=== PATIENT | female | born 1950 | race Caucasian/White ===

== ENCOUNTER → 2024-06-07 | Outpatient (CLI) | payer MEDICARE, OTHER ==
--- NOTE | 2024-06-07 14:44 | MR ---
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 COMPARISON: None TECHNIQUE: Triplane multisequence imaging was performed of the pelvis. IV Contrast: 6 cc Gadavist FINDINGS: Reproductive: Vagina: Unremarkable. Uterus: Surgically absent Ovaries: Follicular changes are noted to the ovaries. Right adnexal 7.0 x 5.7 x 1 cm high T2 low T1 s ignal cysts. Bladder: Suprapubic Friend catheter in appropriate position.. Bowel: Unremarkable as visualized. Scattered colonic diverticula. Peritoneum: No free fluid or adenopathy. Lymph nodes: No evidence of adenopathy. Vasculature: Unremarkable. Musculoskeletal: Abnormal bone marrow signal within the left ischial tuberosity with enhancement arou nd this region. Soft tissue defect extending to the the ischial tuberosity measuring at least 3.4 x 3 .8 cm. Right hip arthroplasty limits evaluation the right pelvis. Abdominal wall/soft tissues: Soft tissue defect as described above. IMPRESSION: 1. Left sacral decubitus ulcer with left ischial tuberosity with abnormal bone marrow compatible wit h osteomyelitis. 2. Simple appearing right adnexal cystic lesion measuring up to 7.0 cm. Possibly postsurgical cyst v ersus ovarian cyst. Consider surveillance imaging 1 year. 3. Clonic diverticulosis. 4. Friend catheter in appropriate position.
== END | disposition home or self-care (01) ==
LOC: RADMRIMAIN 08:36
PROVIDERS: ATTEND Internal Medicine Infectious Disease
DX: L89.224 Pressure ulcer of left hip, stage 4 (principal); K57.90 Diverticulosis of intestine, part unspecified, without perforation or abscess without bleeding
CPT/HCPCS: 72197; A9585

== ENCOUNTER → 2025-03-08 | Outpatient (CLI) | payer MEDICARE, OTHER ==
--- NOTE | 2025-03-08 19:02 | MR ---
EXAMINATION TYPE: MR pelvis wo/w con DATE OF EXAM: 03/08/2025 4:57 PM COMPARISON: 06/07/2024. CLINICAL INDICATION: Female, 74 years old with history of L89.224, Assess osteomyelitis of left ischi al tuberosity, pressure ulcer left hip stage 4. TECHNIQUE: Triplane multisequence imaging was performed of the pelvis. IV Contrast: 7 mL Gadobutrol FINDINGS: Reproductive: The uterus is surgically absent. Right probable ovarian 6.9 x 6.1 cm simple appearing cyst. Bladder: Suprapubic celis catheter in place. Bowel: Unremarkable as visualized. Few scattered colonic diverticula. Peritoneum: No free fluid or adenopathy. Lymph nodes: No evidence of adenopathy. Vasculature: Unremarkable. Musculoskeletal: Redemonstration of sacral decubitus ulcer extending to the left ischial tuberosity. No significantly changed from prior. There remains some probable reactive bony edema. Abnormal low si gnal within the T1 weighted imaging in the left initial tuberosity. Soft tissue defect extending to t he the ischial tuberosity measuring at least 3.4 x 3.8 cm. Soft tissue findings are not significantly changed from prior. No organizing fluid collection identified. Right hip arthroplasty limits evaluation the right pelvis. Abdominal wall/soft tissues: Left lower quadrant ostomy partially visualized. IMPRESSION: 1. No demonstration of abnormal signal within the left initial tuberosity suggestive osteoarthritis. Soft tissues are not significantly changed however compared to prior. 2. Suprapubic bladder catheter in appropriate position. 3. Redemonstration of simple appearing right adnexal cyst measuring up to 6.9 cm previously 6.1 cm. C onsider surveillance with follow-up ultrasound in 1 year. 4. Colonic diverticulosis. [facility], , 03/08/2025 7:00 PM
== END | disposition home or self-care (01) ==
LOC: RADMRIMAIN 15:31
PROVIDERS: ATTEND Internal Medicine Infectious Disease
DX: L89.224 Pressure ulcer of left hip, stage 4 (principal); K57.30 Diverticulosis of large intestine without perforation or abscess without bleeding; E27.9 Disorder of adrenal gland, unspecified
CPT/HCPCS: 72197; A9585

== ENCOUNTER 2025-03-13 16:18 | Inpatient (IN) | payer MEDICARE, OTHER ==
--- NOTE | 2025-03-13 16:44 | ED ---
General Adult HPI - General Chief complaint: Extremity Injury, Lower Stated complaint: Fall Time Seen by Provider: 03/13/25 16:25 Source: patient, EMS, RN notes reviewed, old records reviewed Mode of arrival: EMS Limitations: no limitations - History of Present Illness Initial comments: This is a 74 a-year-old female who presents to the emergency department from [facility]. According to the patient she slid out of her wheelchair today and landed on her right side and she went to [facility] where they determined she had a distal femur fracture and a proximal tib-fib fracture. Patient states she does not ambulate anymore because of her multiple sclerosis. Patient states she also has a wound that has been healing over well and she supposed to get a flap for the wound but because of this she now will be delayed. Patient denies hitting her head or neck. Patient has any chest or back pain. - Related Data Home Medications Medication Instructions Recorded Confirmed Acetaminophen [Tylenol] 650 mg PO Q4H PRN 03/13/25 03/13/25 Active Liquid Protein 30 ml PO BID@08,199903/13/25 03/13/25 Ascorbic Acid [Vitamin C] 500 mg PO BID@08,199903/13/25 03/13/25 Aspirin EC [Ecotrin Low Dose] 81 mg PO DAILY@0803/13/25 03/13/25 Baclofen 10 mg PO BID PRN 03/13/25 03/13/25 Baclofen 10 mg PO DAILY@0803/13/25 03/13/25 Baclofen [Lioresal] 20 mg PO HS@199903/13/25 03/13/25 Cetirizine HCl [Zyrtec] 10 mg PO HS@199903/13/25 03/13/25 Dextromethorphan Hbr Syrup 10 ml PO Q4H PRN 03/13/25 03/13/25 Ergocalciferol (Vitamin D2) 1,250 mcg PO TH@79903/13/25 03/13/25 [Drisdol (GEQ) 1,250 MCG (50,000 IU)] Fluticasone Nasal [place] [Flonase 2 spray EA NOSTRIL DAILY@0803/13/25 03/13/25 Nasal [place]] HYDROcodone/APAP 10-325MG [[place] 1 tab PO HS@199903/13/25 03/13/25 10-325] HYDROcodone/APAP 10-325MG [[place] 1 tab PO Q12H PRN 03/13/25 03/13/25 10-325] Hyoscyamine Sulfate [Levsin] 0.125 mg PO Q4H PRN 03/13/25 03/13/25 Ibuprofen [Motrin] 800 mg PO Q6H PRN 03/13/25 03/13/25 Levothyroxine Sodium [Synthroid] 100 mcg PO DAILY@49903/13/25 03/13/25 Lidocaine 4% Patch 1 patch TOPICAL DAILY PRN 03/13/25 03/13/25 Loperamide [Imodium] 2 mg PO Q6H PRN 03/13/25 03/13/25 Meclizine [Antivert] 25 mg PO Q8H PRN 03/13/25 03/13/25 Menthol [Essie] 7.5 mg MM Q3H PRN 03/13/25 03/13/25 Methenamine Hippurate 1 gm PO BID@799,199903/13/25 03/13/25 Methylprednisolone Powder 1,000 mg IV DAILY PRN 03/13/25 03/13/25 Muscle Rub External Cream 10-15% 1 applic TOPICAL Q8H PRN 03/13/25 03/13/25 Ondansetron [Zofran] 4 mg PO Q6H PRN 03/13/25 03/13/25 Simvastatin [Zocor] 5 mg PO HS@199903/13/25 03/13/25 Sodium Chloride [Saline Nasal Mist] 2 spray EA NOSTRIL Q1H PRN 03/13/25 03/13/25 Teriflunomide [Aubagio] 14 mg PO DAILY@79903/13/25 03/13/25 amLODIPine [Norvasc] 5 mg PO DAILY@79903/13/25 03/13/25 diphenhydrAMINE HCL [Benadryl] 25 mg PO HS PRN 03/13/25 03/13/25 guaiFENesin 400 mg PO Q4H PRN 03/13/25 03/13/25 lisinopriL [Zestril] 40 mg PO DAILY@79903/13/25 03/13/25 polyethylene glycoL 3350 [Miralax] 17 gm PO DAILY PRN 03/13/25 03/13/25 Allergies Allergy/AdvReac Type Severity Reaction Status Date / Time cefdinir [From Omnicef] Allergy Nausea & Verified 03/13/25 17:48 Vomiting duloxetine [From Cymbalta] Allergy Unknown Verified 03/13/25 17:48 hydromorphone [From Dilaudid] Allergy Nausea & Verified 03/13/25 17:48 Vomiting Review of Systems ROS Statement: Those systems with pertinent positive or pertinent negative responses have been documented in the HPI. ROS Other: All systems not noted in ROS Statement are negative. Past Medical History Past Medical History: Hypertension, Musculoskeletal Disorder, Thyroid Disorder History of Any Multi-Drug Resistant Organisms: MRSA Date of last positivie culture/infection: 07/05/24 MDRO Source:: BUTTOCK Past Surgical History: Cholecystectomy, Hysterectomy, Orthopedic Surgery Additional Past Surgical History / Comment(s): indwelling suprapubic cath Past Psychological History: No Psychological Hx Reported Smoking Status: Never smoker Past Alcohol Use History: None Reported Past Drug Use History: None Reported General Exam - General Exam Comments Initial Comments: GENERAL: Patient is well-developed and well-nourished. Patient is nontoxic and well- hydrated and is in mild distress. ENT: Neck is soft and supple. No significant lymphadenopathy is noted. Oropharynx is clear. Moist mucous membranes. Neck has full range of motion without eliciting any pain. EYES: The sclera were anicteric and conjunctiva were pink and moist. Extraocular movements were intact and pupils were equal round and reactive to light. Eyelids were unremarkable. PULMONARY: Unlabored respirations. Good breath sounds bilaterally. No audible rales rhonchi or wheezing was noted. CARDIOVASCULAR: There is a regular rate and rhythm without any murmurs gallops or rubs. ABDOMEN: Soft and nontender with normal bowel sounds. SKIN: Skin is clear with no lesions or rashes and otherwise unremarkable. NEUROLOGIC: Patient is alert and oriented x3. Cranial nerves II through XII are grossly intact. Motor and sensory are also intact. Normal speech, volume and content. Symmetrical smile. MUSCULOSKELETAL: Patient has tenderness in the proximal tib-fib area as well as the distal femur area. LYMPHATICS: No significant lymphadenopathy is noted PSYCHIATRIC: Normal psychiatric evaluation. Limitations: no limitations Course Vital Signs 03/13/25 03/13/25 03/13/25 16:22 17:48 18:45 Temperature 98.4 F 98.4 F Pulse Rate 117 H 102 H 112 H Respiratory 20 20 20 Rate Blood Pressure 121/67 116/89 126/61 O2 Sat by Pulse 95 96 94 L Oximetry Medical Decision Making - Medical Decision Making Was pt. sent in by a medical professional or institution (, [facility], [employer], urgent care, hospital, or [facility]...) When possible be specific @ -No Did you speak to anyone other than the patient for history (EMS, parent, family, police, friend...)? What history was obtained from this source @ -No Did you review nursing and triage notes (agree or disagree)? Why? @ -I reviewed and agree with nursing and triage notes Were old charts reviewed (outside hosp., previous admission, EMS record, old EKG, old radiological studies, urgent care reports/EKG's, [facility] records)? Report findings @ -No old charts were reviewed Differential Diagnosis? @ -Differential Musculoskeletal Muscular strain, contusion, ligament sprain, fracture, arthritis, septic arthritis, bursitis, cellulitis, muscle spasm, nerve compression, DVT, arterial occlusion, herpes zoster, electrolyte abnormality, tumor.... This is not meant to be in all inclusive list EKG interpreted by me (3pts min.). @ -As above X-rays interpreted by me (1pt min.). @ -None done CT interpreted by me (1pt min.). @ -None done U/S interpreted by me (1pt. min.). @ -None done What testing was considered but not performed or refused? (CT, X-rays, U/S, labs)? Why? @ -None What meds were considered but not given or refused? Why? @ -None Did you discuss the management of the patient with other professionals (professionals i.e. , [facility], [employer], lab, RT, psych nurse, licensed master social worker, support group manager, teacher, finance officer, case management assistant)? Give summary @ -I spoke with Dr. Wing and he agreed to admit the patient Was smoking cessation discussed for >3mins.? @ -No Was critical care preformed (if so, how long)? @ -No Were there social determinants of health that impacted care today? How? (Homelessness, low income, unemployed, alcoholism, drug addiction, transportation, low edu. Level, literacy, decrease access to med. care, penitentiary, rehab)? @ -No Was there de-escalation of care discussed even if they declined (Discuss DNR or withdrawal of care, Hospice)? DNR status @ -No What co-morbidities impacted this encounter? (DM, HTN, Smoking, COPD, CAD, Cancer, CVA, ARF, Chemo, Hep., AIDS, mental health diagnosis, sleep apnea, morbid obesity)? @ -None Was patient admitted / discharged? Hospital course, mention meds given and route, prescriptions, significant lab abnormalities, going to OR and other pertinent info. @ -I reviewed patient's x-rays from the sending hospital. They showed a distal comminuted femur fracture as well as a proximal tib-fib fracture. I spoke with Dr. Sana Hood wanted to have the patient admitted to him with a medicine consult and he will speak with the patient in the Undiagnosed new problem with uncertain prognosis? @ -No Drug Therapy requiring intensive monitoring for toxicity (Heparin, Nitro, Insulin, Cardizem)? @ -No Were any procedures done? @ -No Diagnosis/symptom? @ -Femur fracture Acute, or Chronic, or Acute on Chronic? @ -Acute Uncomplicated (without systemic symptoms) or Complicated (systemic symptoms)? @ -Located Side effects of treatment? @ -No Exacerbation, Progression, or Severe Exacerbation? @ -No Poses a threat to life or bodily function? How? (Chest pain, [place], [place], pneumonia, PE, COPD, DKA, ARF, appy, cholecystitis, CVA, Diverticulitis, Homicidal, Suicidal, threat to staff... and all critical care pts) @ -No Diagnosis/symptom? @ -Proximal tib-fib fracture Acute, or Chronic, or Acute on Chronic? @ -Acute Uncomplicated (without systemic symptoms) or Complicated (systemic symptoms)? @ -Complicated Side effects of treatment? @ -None Exacerbation, Progression, or Severe Exacerbation] @ -No Poses a threat to life or bodily function? @ -No Disposition Clinical Impression: Femoral distal fracture, Fracture of proximal end of tibia and fibula Disposition: ADMITTED IP TO THIS HOSP Referrals: Ishmael Ragsdale MD [Primary Care Provider] - 1-2 days Time of Disposition: 19:34
--- NOTE | 2025-03-13 18:46 | CT ---
EXAMINATION TYPE: CT knee RT wo con DATE OF EXAM: 03/13/2025 6:26 PM COMPARISON: None. CLINICAL INDICATION: Female, 74 years old with history of trauma, pt slid out of her wheelchiar last night, pt was dx with distal femoral fx on the R and proximal tib/fib fx TECHNIQUE: Contrast used: mL of , (none if empty) Oral contrast used: (none if empty) Axial images at 3 mm thick sections. Reconstructed images in the coronal and sagittal planes. FINDINGS: There is a comminuted fracture of the distal diaphyseal femur. There is anterior angulation of approx imately 30 degrees of the distal fracture fragments. There is an additional fracture at the metaphysi s just above the femoral condyles. There is a fracture of the proximal metaphyseal tibia. Some comminution with fracture fragments is in the posterior medial aspect of the tibia There is a transverse fracture of the proximal fibular metaphysis. There is a fluid fluid level within the knee joint space. Vascular calcification is present through t he arterial structures. IMPRESSION: 1. COMMINUTED FRACTURES DISTAL FEMUR INCLUDING THE DISTAL DIAPHYSIS ANGULATED FRACTURE AND FROM A MORE DISTAL TRANSVERSE APPEARING FRACTURE AT THE METAPHYSIS OF THE FEMORAL CONDYLES. 2. FRACTURE OF THE PROXIMAL METAPHYSEAL TIBIA. 3. TRANSVERSE FRACTURE PROXIMAL FIBULAR METAPHYSIS. 4. FLUID FLUID LEVEL WITHIN THE KNEE JOINT SPACE [facility], Workstation: [facility], 03/13/2025 6:44 PM
[2025-03-13] MEDS: MORPHINE SULFATE 2 MG/ML SYRINGE IVP STA (19:36)
[2025-03-13] MEDS: SODIUM CHLORIDE 0.9% 1,000 ML IV ONE (19:40)
[2025-03-13] MEDS ORDERED: HYDROmorphone 1 MG/ML 1 ML SYRINGE IM PRN (21:06)
[2025-03-13 21:44] LABS: Basophils # (A) 0.05 10*3/uL (0.00-0.10); Basophils % (A) 0.4 %; Eosinophils # (A) 0.02 10*3/uL (0.04-0.35); Eosinophils % (A) 0.2 %; HCT 21.9 % (37.2-46.3); Lymphocytes # (A) 1.85 10*3/uL (0.90-5.00); MCH 27.8 pg (27.0-32.0); MCHC 31.5 g/dL (32.0-37.0); MCV 88.3 fL (80.0-97.0); Mean Platelet Volume 10.5 fL (9.5-12.2); Monocytes # (A) 1.63 10*3/uL (0.20-1.00); Monocytes % (A) 13.2 %; Neutrophils # (A) 8.73 10*3/uL (1.80-7.70); Neutrophils % (A) 70.8 %; Platelet Count 312 10*3/uL (140-440); RBC 2.48 10*6/uL (4.10-5.20); RDW 18.2 % (11.5-14.5); WBC 12.33 10*3/uL (4.50-10.00)
[2025-03-13 21:49] LABS: HGB 6.9 g/dL (12.0-15.0)
[2025-03-13 21:55] LABS: African American GFR (CKD) 77 (>60 ml/min/1.73 sqM); Anion Gap 6 mmol/L; Blood Urea Nitrogen 29 mg/dL (7-17); Calcium 8.3 mg/dL (8.4-10.2); Carbon Dioxide 26 mmol/L (22-30); Chloride 104 mmol/L (98-107); Glucose 127 mg/dL (74-99); Magnesium 1.8 mg/dL (1.6-2.3); Non-African American GFR(CKD) 67 (>60 ml/min/1.73 sqM); Potassium 3.3 mmol/L (3.5-5.1); Sodium 136 mmol/L (137-145)
[2025-03-13 22:10] LABS: Large Platelets Present; Polychromasia Present
[2025-03-13] MEDS: METOPROLOL TARTRATE 12.5 MG TAB PO SCH (22:16)
[2025-03-13 23:39] LABS: T4, Free (Free Thyroxine) 1.63 ng/dL (0.78-2.19)
[2025-03-14] MEDS: MORPHINE SULFATE 2 MG/ML SYRINGE IVP PRN (00:01)
[2025-03-14] MEDS: HYDROcodone/APAP 5-325MG 1 EACH TAB PO PRN (02:21)
[2025-03-14] MEDS: LEVOTHYROXINE 100 MCG TAB PO SCH (06:47)
[2025-03-14] MEDS: PANTOPRAZOLE 40 MG TABLET PO SCH (06:47)
--- NOTE | 2025-03-14 08:04 | XR ---
EXAMINATION TYPE: XR chest 1V portable DATE OF EXAM: 03/14/2025 7:58 AM COMPARISON: None TECHNIQUE: XR chest 1V portable Portable AP radiograph of the chest. CLINICAL INDICATION:Female, 74 years old with history of preop; preop for hip surgery today FINDINGS: Lungs/Pleura: There is no evidence of pleural effusion, focal consolidation, or pneumothorax. Pulmonary vascularity: Unremarkable. Heart/mediastinum: Cardiomediastinal silhouette is prominent in size. Atherosclerotic calcifications are seen in the aorta. Musculoskeletal: No acute osseous pathology. Other findings: None Lines/Tubes: Left chest subclavian approach Mediport catheter distal tip at the low SVC. IMPRESSION: No acute cardiopulmonary disease/process. [facility], , 03/14/2025 8:01 AM
[2025-03-14] MEDS: FLUTICASONE NASAL 50MCG/SPRAY 16GM BTL EA NOSTRIL SCH (09:20)
--- NOTE | 2025-03-14 10:17 | CA ---
Transthoracic Echo Report Name: Janee Banuelos Age: 74 Gender: F : 1950 Exam Date: 03/14/2025 08:53 Exam Location: [place] [facility] Ht (in): 63 Wt (lb): 150 Ordering Physician: Meg Thomas Attending/Referring Phys: William WYLIE Director [employer] Trent Sanders, KIRSTEN Procedure CPT: Indications: afib Cardiac Hx: HTN Technical Quality: Fair Contrast 1: Total Dose (mL): Contrast 2: Total Dose (mL): MEASUREMENTS (Male / Female) Normal Values 2D ECHO LV Diastolic Diameter PLAX 3.5 cm 4.2 - 5.9 / 3.9 - 5.3 cm LV Systolic Diameter PLAX 1.9 cm IVS Diastolic Thickness 1.1 cm 0.6 - 1.0 / 0.6 - 0.9 cm LVPW Diastolic Thickness 1.1 cm 0.6 - 1.0 / 0.6 - 0.9 cm LV Relative Wall Thickness 0.6 RV Internal Dim ED PLAX 2.8 cm LVOT Diameter 1.5 cm LA Systolic Diameter LX 3.8 cm 3.0 - 4.0 / 2.7 - 3.8 cm LA Volume 38.3 cm??? 18 - 58 / 22 - 52 cm??? LA Volume Index 21.8 cm???/m??? 16 - 28 cm???/m??? DOPPLER AI Peak Velocity 344.5 cm/s AI Peak Gradient 47.5 mmHg AI Pressure Half Time 360.2 ms MV Peak Velocity 115.8 cm/s MV Peak Gradient 5.4 mmHg MV Mean Velocity 69.5 cm/s MV Mean Gradient 2.2 mmHg MV Velocity Time Integral 20.2 cm MV Area PHT 5.4 cm??? Mitral E Point Velocity 43.8 cm/s Mitral A Point Velocity 89.1 cm/s Mitral E to A Ratio 0.5 MV Deceleration Time 140.5 ms TR Peak Velocity 300.0 cm/s TR Peak Gradient 36.0 mmHg Right Atrial Pressure 5.0 mmHg Pulmonary Artery Systolic Pressu 41.0 mmHg Right Ventricular Systolic Press 41.0 mmHg FINDINGS Left Ventricle Left ventricular ejection fraction is estimated at 65 %. Mildly increased septal wall thickness. Mildly increased posterior wall thickness. Normal left ventricular systolic function with no obvious regional wall motion abnormalities. Right Ventricle Normal right ventricular size and function. Mild pulmonary hypertension. Right ventricular systolic pressure estimated at 41 mm hg. Right Atrium Normal right atrial size. Left Atrium Normal left atrial size. Mitral Valve Mitral annular calcification. No mitral regurgitation. No mitral stenosis. Aortic Valve Trileaflet aortic valve. Thickened aortic valve without stenosis. No aortic stenosis. Moderate aortic regurgitation. Tricuspid Valve Structurally normal tricuspid valve. No tricuspid stenosis. Mild tricuspid regurgitation. Pulmonic Valve Structurally normal pulmonic valve. No pulmonic stenosis. Trace pulmonic regurgitation. Pericardium No pericardial effusion. Aorta Normal size aortic root and proximal ascending aorta. CONCLUSIONS Normal LV size and systolic function. Mild mitral annular calcification and aortic valve sclerosis without restriction. Moderate aortic regurgitation and mild pulmonary hypertension. No pericardial effusion Previewed by: Dr. Kristofer Alicea MD (Electronically Signed) Final Date: 14 Mar 2025 10:16
[2025-03-14 10:38] LABS: Basophils # (A) 0.07 X 10*3/uL (0.00-0.10); Basophils % (A) 0.7 %; HCT 31.3 % (37.2-46.3); HGB 9.9 g/dL (12.0-15.0); Lymphocytes # (A) 1.88 X 10*3/uL (0.90-5.00); Lymphocytes % (A) 18.6 %; MCHC 31.6 g/dL (32.0-37.0); MCV 88.7 FL (80.0-97.0); Mean Platelet Volume 11.2 FL (9.5-12.2); Monocytes # (A) 1.35 X 10*3/uL (0.20-1.00); Monocytes % (A) 13.4 %; NRBC Per 100 WBC 0 X 10*3/uL (0.00-0.01); Neutrophils # (A) 6.65 X 10*3/uL (1.80-7.70); Neutrophils % (A) 65.9 %; Platelet Count 234 X 10*3/uL (140-440); RBC 3.53 X 10*6/uL (4.10-5.20); WBC 10.09 X 10*3/uL (4.50-10.00)
[2025-03-14 10:54] LABS: BUN/Creat Ratio 32.14 Ratio (12.00-20.00); Blood Urea Nitrogen 22.5 mg/dL (9.0-27.0); Calcium 8.1 mg/dL (8.7-10.3); Carbon Dioxide 22.8 mmol/L (21.6-31.8); Chloride 106 mmol/L (96-109); Glucose 96 mg/dL (70-110); Sodium 139 mmol/L (135-145)
--- NOTE | 2025-03-14 11:33 | P.CRDCN ---
History of Present Illness Consult date: 03/14/25 History of present illness: This is a 74-year-old female patient of Dr. Spears with past medical history of hypertension, hyperlipidemia, hypothyroidism, multiple sclerosis for 30+ years with severe debility, wheelchair-bound with sacral decubitus ulcer, suprapubic catheter, chronic vertigo. We have been asked to evaluate the patient for atrial fibrillation with RVR and for preop clearance. Patient gives history that she had slipped out of her wheelchair. She denies any loss of consciousness and did not hit her head. Patient was initially seen at [facility] and transferred to [facility]. She is scheduled for surgery this afternoon. Patient has been found to have fracture of the distal femur, proximal tibia and fibula. Blood pressure 117/76, heart rate 105, pulse ox 96% on room air. Patient is status post transfusion of 2 units of packed RBCs for initial hemoglobin 6.9. -EKG: Sinus tachycardia 122 bpm, EKG #2 artifact. Telemetry reveals sinus tachycardia with PACs -Chest x-ray: No acute process. -CT right knee: Comminuted fractures distal femur. Fracture of the proximal metaphyseal tibia. Transverse fracture proximal fibular metaphysis. Fluid in the knee joint space. -Laboratory studies: WBC initially 12.3 now 10.1. Initial hemoglobin 6.9 and now 9.9. Sodium 136, potassium 3.3, BUN 29 creatinine 0.86. Troponin 0.017. TSH 0.4. Normal free T4 of 1.63. -Home cardiac medications: Amlodipine 5 mg daily, aspirin 81 mg daily, li sinopril 40 mg daily, simvastatin 5 mg at bedtime, patient is also on levothyroxine. -Echocardiogram performed on this hospitalization reveals normal LV size and systolic function. Mild mitral annular calcification and aortic valve sclerosis without restriction. Moderate aortic regurgitation and mild pulmonary hypertension. No pericardial effusion. -Event monitor performed 09/26 - 10/03/24 revealed sinus rhythm with maximum heart rate 157. No atrial fibrillation. Review Of Systems: At the time of my exam: CONSTITUTIONAL: Denies fever or chills. HEENT: Denies blurred vision, vision changes, or eye pain. Denies hemoptysis CARDIOVASCULAR: Denies chest pain. Denies orthopnea. Denies PND. Denies palpitations RESPIRATORY: Denies shortness of breath. GASTROINTESTINAL: Denies abdominal pain. Denies nausea or vomiting. HEMATOLOGIC: Denies bleeding disorders. GENITOURINARY: Denies any blood in urine. SKIN: Denies puritis. Denies rash. Physical examination: Gen: This is 74-year-old female in no acute distress VS: reviewed HEENT: Head is atraumatic, normocephalic. Pupils equal, round. Sclerae is anicteric. NECK: Supple. No JVD. LUNGS: Clear to auscultation. No wheezes or rhonchi. No intercostal retractions. HEART: Regular rate and rhythm. No murmur. ABDOMEN: Soft No tenderness. EXTREMITIES: No pedal edema. No calf tenderness. NEUROLOGICAL: Patient is awake, alert and oriented x3. Assessment: Sinus tachycardia with PACs Mechanical fall with resulting distal femur fracture, proximal tibia and fibula fractures Acute blood loss anemia status posttransfusion of 2 units of packed RBCs Hypertension Hyperlipidemia Hypothyroidism MS Moderate aortic regurgitation Mild pulmonary hypertension moderate AR, mild pulmonary hypertension. Cleared for surgery Plan: EKGs and telemetry have been reviewed with no episodes of clear atrial fibrillation Resume patient's home cardiac medications Increase atorvastatin to 20 mg Decrease levothyroxine to 75 mcg daily Patient is cleared from cardiology to undergo surgery as planned this afternoon. No absolute contraindications for surgery. Further recommendations to follow based upon clinical course Thank you kindly for this consultation. Nurse practitioner note has been reviewed, I agree with documented findings and plan of care. Patient was seen and examined. Past Medical History Past Medical History: Hypertension, Musculoskeletal Disorder, Thyroid Disorder Additional Past Medical History / Comment(s): Multiple Sclerosis, HTN from the MS History of Any Multi-Drug Resistant Organisms: MRSA Date of last positivie culture/infection: 07/05/24 MDRO Source:: BUTTOCK Past Surgical History: Cholecystectomy, Hysterectomy, Orthopedic Surgery Additional Past Surgical History / Comment(s): indwelling suprapubic cath Past Psychological History: No Psychological Hx Reported Smoking Status: Never smoker Past Alcohol Use History: None Reported Past Drug Use History: None Reported - Past Family History Father Additional Family Medical History / Comment(s): Throat Cancer Medications and Allergies Home Medications Medication Instructions Recorded Confirmed Type Acetaminophen [Tylenol] 650 mg PO Q4H PRN 03/13/25 03/13/25 History Active Liquid Protein 30 ml PO BID@0800,199903/13/25 03/13/25 History Ascorbic Acid [Vitamin C] 500 mg PO BID@0800,199903/13/25 03/13/25 History Aspirin EC [Ecotrin Low Dose] 81 mg PO DAILY@0803/13/25 03/13/25 History Baclofen 10 mg PO BID PRN 03/13/25 03/13/25 History Baclofen 10 mg PO DAILY@0800 03/13/25 03/13/25 History Baclofen [Lioresal] 20 mg PO HS@199903/13/25 03/13/25 History Cetirizine HCl [Zyrtec] 10 mg PO HS@199903/13/25 03/13/25 History Dextromethorphan Hbr Syrup 10 ml PO Q4H PRN 03/13/25 03/13/25 History Ergocalciferol (Vitamin D2) 1,250 mcg PO TH@79903/13/25 03/13/25 History [Drisdol (GEQ) 1,250 MCG (50,000 IU)] Fluticasone Nasal [place] [Flonase 2 spray EA NOSTRIL DAILY@0803/13/25 03/13/25 History Nasal Alpha] HYDROcodone/APAP 10-325MG [[place] 1 tab PO HS@199903/13/25 03/13/25 History 10-325] HYDROcodone/APAP 10-325MG [[place] 1 tab PO Q12H PRN 03/13/25 03/13/25 History 10-325] Hyoscyamine Sulfate [Levsin] 0.125 mg PO Q4H PRN 03/13/25 03/13/25 History Ibuprofen [Motrin] 800 mg PO Q6H PRN 03/13/25 03/13/25 History Levothyroxine Sodium [Synthroid] 100 mcg PO DAILY@0500 03/13/25 03/13/25 History Lidocaine 4% Patch 1 patch TOPICAL DAILY PRN 03/13/25 03/13/25 History Loperamide [Imodium] 2 mg PO Q6H PRN 03/13/25 03/13/25 History Meclizine [Antivert] 25 mg PO Q8H PRN 03/13/25 03/13/25 History Menthol [[place]] 7.5 mg MM Q3H PRN 03/13/25 03/13/25 History Methenamine Hippurate 1 gm PO BID@0800,199903/13/25 03/13/25 History Methylprednisolone Powder 1,000 mg IV DAILY PRN 03/13/25 03/13/25 History Muscle Rub External Cream 10-15% 1 applic TOPICAL Q8H PRN 03/13/25 03/13/25 History Ondansetron [Zofran] 4 mg PO Q6H PRN 03/13/25 03/13/25 History Simvastatin [Zocor] 5 mg PO HS@199903/13/25 03/13/25 History Sodium Chloride [Saline Nasal Mist] 2 spray EA NOSTRIL Q1H PRN 03/13/25 03/13/25 History Teriflunomide [Aubagio] 14 mg PO DAILY@0800 03/13/25 03/13/25 History amLODIPine [Norvasc] 5 mg PO DAILY@0800 03/13/25 03/13/25 History diphenhydrAMINE HCL [Benadryl] 25 mg PO HS PRN 03/13/25 03/13/25 History guaiFENesin 400 mg PO Q4H PRN 03/13/25 03/13/25 History lisinopriL [Zestril] 40 mg PO DAILY@0800 03/13/25 03/13/25 History polyethylene glycoL 3350 [Miralax] 17 gm PO DAILY PRN 03/13/25 03/13/25 History Allergies Allergy/AdvReac Type Severity Reaction Status Date / Time cefdinir [From Omnicef] Allergy Nausea & Verified 03/13/25 17:48 Vomiting duloxetine [From Cymbalta] Allergy Unknown Verified 03/13/25 17:48 hydromorphone [From Dilaudid] Allergy Nausea & Verified 03/13/25 17:48 Vomiting Physical Exam Vitals: Vital Signs Temp Pulse Pulse Resp BP BP Pulse Ox 03/14/25 06:42 98.2 F 102 H 18 94/61 96 03/14/25 04:38 98.3 F 97 18 106/67 94 L 03/14/25 04:18 98.3 F 102 H 18 96/59 94 L 03/14/25 04:11 98.4 F 101 H 18 94/60 93 L 03/14/25 03:06 98.5 F 100 18 112/68 95 05/06/25 01:19 98.5 F 106 H 18 113/70 93 L 03/14/25 00:47 99.1 F 103 H 16 119/58 95 03/14/25 00:27 99.1 F 102 H 16 110/52 95 03/13/25 22:16 116 H 18 116/58 97 03/13/25 19:36 108 H 18 108/78 95 03/13/25 18:45 98.4 F 112 H 20 126/61 94 L 03/13/25 17:48 102 H 20 116/89 96 03/13/25 16:22 98.4 F 117 H 20 121/67 95 Intake and Output 03/13/25 03/14/25 03/14/25 22:59 06:59 14:59 Intake Total 620 Output Total 400 Balance 220 Intake: Blood Product 620 Rc As-1 Unit 310 [id number] Rc As-1 Unit 310 [id number] Output: Urine 400 Other: Weight 68.039 kg 68.039 kg Results 03/14/25 07:35 03/14/25 07:35 Cardiac Enzymes 03/13/25 Range/Units 22:39 Troponin I 0.017 (0.000-0.034) ng/mL CBC 03/13/25 Range/Units 21:28 WBC 12.33 H (4.50-10.00) 10*3/uL RBC 2.48 L (4.10-5.20) 10*6/uL Hgb 6.9 L* (12.0-15.0) g/dL Hct 21.9 L (37.2-46.3) % Plt Count 312 (140-440) 10*3/uL Comprehensive Metabolic Panel 03/13/25 Range/Units 21:28 Sodium 136 L (137-145) mmol/L Potassium 3.3 L (3.5-5.1) mmol/L Chloride 104 (98-107) mmol/L Carbon Dioxide 26 (22-30) mmol/L BUN 29 H (7-17) mg/dL Creatinine 0.86 (0.52-1.04) mg/dL Glucose 127 H (74-99) mg/dL Calcium 8.3 L (8.4-10.2) mg/dL Current Medications Generic Name Dose Route Start Last Admin Trade Name Freq PRN Reason Stop Dose Admin Hydrocodone Bitart/Acetaminophen 1 - 2 each 03/13/25 21:08 03/14/25 02:21 Hydrocodone/Apap 5-325mg 1 Each Tab PO 2 each Q6HR PRN Administration Pain Atorvastatin Calcium 20 mg 03/14/25 20:00 Atorvastatin 20 Mg Tab PO HS@2000 [facility] Fluticasone Propionate 2 spray 03/14/25 08:00 Fluticasone Nasal 50mcg/Alpha 16gm Btl EA NOSTRIL DAILY@0800 [facility] Hydromorphone HCl 1 mg 03/13/25 21:06 Hydromorphone 1 Mg/Ml 1 Ml Syringe IM Q3HR PRN Pain 7-10 Sodium Chloride 1,000 mls @ 50 mls/hr 03/13/25 19:34 03/13/25 19:40 Saline 0.9% IV 03/14/25 15:33 50 mls/hr .Q20H ONE Administration Levothyroxine Sodium 100 mcg 03/14/25 06:30 03/14/25 06:47 Levothyroxine 100 Mcg Tab PO 100 mcg DAILY@0630 [facility] Administration Metoprolol Tartrate 12.5 mg 03/13/25 21:30 03/14/25 08:53 Metoprolol Tartrate 12.5 Mg Tab PO 12.5 mg BID [facility] Administration Morphine Sulfate 2 mg 03/13/25 19:35 03/14/25 08:53 Morphine Sulfate 2 Mg/Ml Syringe IVP 2 mg Q4HR PRN Administration Pain/Discomfort Ondansetron HCl 4 mg 03/13/25 21:09 Ondansetron 4 Mg/2 Ml Vial IVP Q6HR PRN Nausea And Vomiting Pantoprazole Sodium 40 mg 03/14/25 07:30 03/14/25 06:47 Pantoprazole 40 Mg Tablet PO 40 mg [id number] [facility] Administration Intake and Output 03/13/25 03/14/25 03/14/25 22:59 06:59 14:59 Intake Total 620 Output Total 400 Balance 220 Intake: Blood Product 620 Rc As-1 Unit 310 [id number] Rc As-1 Unit 310 [id number] Output: Urine 400 Other: Weight 68.039 kg 68.039 kg 03/13/25 21:28 03/13/25 21:28
--- NOTE | 2025-03-14 15:39 | P.CONS ---
History of Present Illness - Reason for Consult Consult date: 03/14/25 Medical management - Chief Complaint Status post fall - History of Present Illness Patient is a 74-year-old female with past medical history of hypertension, hyperlipidemia, hypothyroidism, multiple sclerosis for 30+ years with severe disability and wheelchair-bound with sacral decub ulcer, suprapubic catheter and chronic vertigo. Patient presents to ER status post fall from the wheelchair when it hit at the door. Patient slipped out of the wheelchair. Initially presented to [facility] and was transferred to [facility] for orthopedic surgery evaluation. Denied any loss of consciousness or in the eating her head. On admission hemoglobin was 6.9 and patient received 2 units of PRBC transfusion, hemoglobin went up to 9.[address] right knee showed comminuted fractures distal femur including the distal diaphysis angulated fracture and from a more distal transverse appearing fracture at the metaphysis of the femoral condyles. Fracture of the proximal metaphyseal tibia. Transverse fracture proximal fibular metaphysis. Fluid level within the knee joint space. EKG showed sinus tachycardia EKG 1. EKG 2 showed A-fib with RVR might be artifact. Chest x-ray showed no acute cardiopulmonary process. Laboratory data showed WBC 12.3 hemoglobin 6.9 and platelets 312 sodium 136 potassium 3.3 chloride 104 bicarb is 26 BUN 29 creatinine 0.86 and blood sugar 127 calcium 8.3 magnesium 1.8 TSH 0.4 and free T4 levels 1.63 troponin 0.017 Review of Systems Constitutional: Patient denies any fever or chills . No generalized weakness or weight loss. Abdomen: Patient denied nausea vomiting and diarrhea and abdominal pain. Cardiovascular: Patient denies any chest pain or short of breath no palpitations. Respiratory: patient denied any cough or sputum production. No shortness of breath Neurologic: Patient denied any numbness or tingling. no headache. Musculoskeletal: Patient denies any complaints of joint swelling. Right leg pa in Skin: Negative Psychiatric: Negative Endocrine: No heat or cold intolerance. No recent weight gain. Genitourinary: No dysuria or hematuria. All other 14 point ROS negative except the above. Past Medical History Past Medical History: Hypertension, Musculoskeletal Disorder, Thyroid Disorder Additional Past Medical History / Comment(s): Multiple Sclerosis, HTN from the MS History of Any Multi-Drug Resistant Organisms: MRSA Year Discovered:: 07/05/24 MDRO Source:: BUTTOCK Past Surgical History: Cholecystectomy, Hysterectomy, Orthopedic Surgery Additional Past Surgical History / Comment(s): indwelling suprapubic cath Past Psychological History: No Psychological Hx Reported Smoking Status: Never smoker Past Alcohol Use History: None Reported Past Drug Use History: None Reported - Past Family History Father Additional Family Medical History / Comment(s): Throat Cancer Medications and Allergies Home Medications Medication Instructions Recorded Confirmed Type Acetaminophen [Tylenol] 650 mg PO Q4H PRN 03/13/25 03/13/25 History Active Liquid Protein 30 ml PO BID@0800,199903/13/25 03/13/25 History Ascorbic Acid [Vitamin C] 500 mg PO BID@0800,199903/13/25 03/13/25 History Aspirin EC [Ecotrin Low Dose] 81 mg PO DAILY@79903/13/25 03/13/25 History Baclofen 10 mg PO BID PRN 03/13/25 03/13/25 History Baclofen 10 mg PO DAILY@0803/13/25 03/13/25 History Baclofen [Lioresal] 20 mg PO HS@199903/13/25 03/13/25 History Cetirizine HCl [Zyrtec] 10 mg PO HS@199903/13/25 03/13/25 History Dextromethorphan Hbr Syrup 10 ml PO Q4H PRN 03/13/25 03/13/25 History Ergocalciferol (Vitamin D2) 1,250 mcg PO TH@0803/13/25 03/13/25 History [Drisdol (GEQ) 1,250 MCG (50,000 IU)] Fluticasone Nasal [place] [Flonase 2 spray EA NOSTRIL DAILY@0803/13/25 03/13/25 History Nasal [place]] HYDROcodone/APAP 10-325MG [[place] 1 tab PO HS@199903/13/25 03/13/25 History 10-325] HYDROcodone/APAP 10-325MG [[place] 1 tab PO Q12H PRN 03/13/25 03/13/25 History 10-325] Hyoscyamine Sulfate [Levsin] 0.125 mg PO Q4H PRN 03/13/25 03/13/25 History Ibuprofen [Motrin] 800 mg PO Q6H PRN 03/13/25 03/13/25 History Levothyroxine Sodium [Synthroid] 100 mcg PO DAILY@05003/13/25 03/13/25 History Lidocaine 4% Patch 1 patch TOPICAL DAILY PRN 03/13/25 03/13/25 History Loperamide [Imodium] 2 mg PO Q6H PRN 03/13/25 03/13/25 History Meclizine [Antivert] 25 mg PO Q8H PRN 03/13/25 03/13/25 History Menthol [[place]] 7.5 mg MM Q3H PRN 03/13/25 03/13/25 History Methenamine Hippurate 1 gm PO BID@08,199903/13/25 03/13/25 History Methylprednisolone Powder 1,000 mg IV DAILY PRN 03/13/25 03/13/25 History Muscle Rub External Cream 10-15% 1 applic TOPICAL Q8H PRN 03/13/25 03/13/25 History Ondansetron [Zofran] 4 mg PO Q6H PRN 03/13/25 03/13/25 History Simvastatin [Zocor] 5 mg PO HS@199903/13/25 03/13/25 History Sodium Chloride [Saline Nasal Mist] 2 spray EA NOSTRIL Q1H PRN 03/13/25 03/13/25 History Teriflunomide [Aubagio] 14 mg PO DAILY@0800 03/13/25 03/13/25 History amLODIPine [Norvasc] 5 mg PO DAILY@0800 03/13/25 03/13/25 History diphenhydrAMINE HCL [Benadryl] 25 mg PO HS PRN 03/13/25 03/13/25 History guaiFENesin 400 mg PO Q4H PRN 03/13/25 03/13/25 History lisinopriL [Zestril] 40 mg PO DAILY@0800 03/13/25 03/13/25 History polyethylene glycoL 3350 [Miralax] 17 gm PO DAILY PRN 03/13/25 03/13/25 History Allergies Allergy/AdvReac Type Severity Reaction Status Date / Time cefdinir [From Omnicef] Allergy Nausea & Verified 03/13/25 17:48 Vomiting duloxetine [From Cymbalta] Allergy Unknown Verified 03/13/25 17:48 hydromorphone [From Dilaudid] Allergy Nausea & Verified 03/13/25 17:48 Vomiting Physical Exam Vitals: Vital Signs Temp Pulse Pulse Resp BP BP Pulse Ox 03/14/25 08:00 98.0 F 105 H 18 117/76 96 03/14/25 06:42 98.2 F 102 H 18 94/61 96 03/14/25 04:38 98.3 F 97 18 106/67 94 L 03/14/25 04:18 98.3 F 102 H 18 96/59 94 L 03/14/25 04:11 98.4 F 101 H 18 94/60 93 L 03/14/25 03:06 98.5 F 100 18 112/68 95 03/14/25 01:19 98.5 F 106 H 18 113/70 93 L 03/14/25 00:47 99.1 F 103 H 16 119/58 95 03/14/25 00:27 99.1 F 102 H 16 110/52 95 03/13/25 22:16 116 H 18 116/58 97 03/13/25 19:36 108 H 18 108/78 95 03/13/25 18:45 98.4 F 112 H 20 126/61 94 L 03/13/25 17:48 102 H 20 116/89 96 03/13/25 16:22 98.4 F 117 H 20 121/67 95 Intake and Output 03/13/25 03/14/25 03/14/25 22:59 06:59 14:59 Intake Total 620 Output Total 400 Balance 220 Intake: Blood Product 620 As-1 Unit 310 [id number] As-1 Unit 310 [id number] Output: Urine 400 Other: Weight 68.039 kg 68.039 kg PHYSICAL EXAMINATION: Patient is lying in the bed comfortably, no acute distress, awake alert and oriented.. HEENT: Normocephalic. Neck is supple. Pupils reactive. Nostrils clear. Oral cavity is moist. Neck reveals no JVD, carotid bruits, or thyromegaly. CHEST EXAMINATION: Trachea is central. Symmetrical expansion. Lung ruff clear to auscultation and percussion. CARDIAC: Normal S1, S2 with no gallops. No murmurs ABDOMEN: Soft. Bowel sounds normal. No organomegaly. No abdominal bruits. Extremities: reveal no edema. No clubbing or cyanosis Neurologically awake, alert, oriented x3. Able to move all extremities while in bed. Right lower extremity decreased range of motion. No gross focal deficits noted Skin: No rash or skin lesions. Psychiatric: Coperative. Nonsuicidal, anxious. Musculoskeletal: No joint swelling. Results CBC & Chem 7: 03/14/25 07:35 03/14/25 07:35 Labs: Abnormal Lab Results - Last 24 Hours (Table) 03/13/25 03/13/25 03/13/25 Range/Units 21:28 21:28 21:53 WBC 12.33 H (4.50-10.00) 10*3/uL RBC 2.48 L (4.10-5.20) 10*6/uL Hgb 6.9 L* (12.0-15.0) g/dL Hct 21.9 L (37.2-46.3) % MCHC 31.5 L (32.0-37.0) g/dL RDW 18.2 H (11.5-14.5) % Immature Gran # 0.05 H (0.00-0.04) 10*3/uL Neutrophils # 8.73 H (1.80-7.70) 10*3/uL Monocytes # 1.63 H (0.20-1.00) 10*3/uL Eosinophils # 0.02 L (0.04-0.35) 10*3/uL Sodium 136 L (137-145) mmol/L Potassium 3.3 L (3.5-5.1) mmol/L BUN 29 H (7-17) mg/dL BUN/Creatinine Ratio (12.00-20.00) Ratio Glucose 127 H (74-99) mg/dL Calcium 8.3 L (8.4-10.2) mg/dL TSH 0.400 L (0.465-4.680) mIU/L Crossmatch See Detail 03/14/25 03/14/25 Range/Units 07:35 07:35 WBC 10.09 H (4.50-10.00) 10*3/uL RBC 3.53 L (4.10-5.20) 10*6/uL Hgb 9.9 L (12.0-15.0) g/dL Hct 31.3 L (37.2-46.3) % MCHC 31.6 L (32.0-37.0) g/dL RDW 18.0 H (11.5-14.5) % Immature Gran # (0.00-0.04) 10*3/uL Neutrophils # (1.80-7.70) 10*3/uL Monocytes # 1.35 H (0.20-1.00) 10*3/uL Eosinophils # (0.04-0.35) 10*3/uL Sodium (137-145) mmol/L Potassium (3.5-5.1) mmol/L BUN (7-17) mg/dL BUN/Creatinine Ratio 32.14 H (12.00-20.00) Ratio Glucose (74-99) mg/dL Calcium 8.1 L (8.4-10.2) mg/dL TSH (0.465-4.680) mIU/L Crossmatch Assessment and Plan Assessment: Status post mechanical fall from the wheelchair. Comminuted fractures distal femur including the distal diaphysis angulated fracture and from my more distal transverse fracture Fracture of proximal metaphyseal tibia Transverse fracture proximal fibular metaphysis. Sinus tachycardia with PACs on EKG as per cardiology. Acute blood loss anemia. Status post 2 units of transfusion. Hemoglobin 6.9 on admission went up to 9.9 Normocytic anemia. Rule out iron deficiency and B12 level Hypertension. Patient is on Norvasc, lisinopril at home. Hyperemia Hypothyroidism. Low TSH and normal free T4 level. Multiple sclerosis Moderate aortic regurgitation and mild pulmonary hypertension DVT prophylaxis. Plan: Patient will be continued on telemonitoring. Patient is on metoprolol 12.5 mg twice daily.2D echocardiogram was done. TSH dose decreased to 75 mcg daily due to low TSH level. Atorvastatin increased to 20 mg at bedtime. Continue with home medications. Norvasc and lisinopril is on hold due to low blood pressure. Monitor H&H. Currently patient denied any complaints of chest pain or shortness of breath. Renal function is stable. Replace electrolytes. Patient is at low risk for orthopedic surgery. Further recommendations based on the clinical course. Thank you kindly for your consult. Time with Patient: Greater than 30
[2025-03-14] MEDS: ACETAMINOPHEN TAB 325 MG TAB PO PRN (17:14)
[2025-03-14] MEDS ORDERED: ATORVASTATIN 10 MG TAB PO SCH (20:00)
[2025-03-14] MEDS: ATORVASTATIN 20 MG TAB PO SCH (20:34)
--- NOTE | 2025-03-14 20:36 | P.HPOR ---
History of Present Illness H&P Date: 03/14/25 The patient is a 74 year old female with multiple medical problems including multiple sclerosis and a sacral decubitus ulcer who was transferred to our facility from [facility]. She fell out of her wheel chair and sustained and injury to her knee. She was found to have a comminuted distal femur fracture and a minimally displaced proximal tibia and fibula fracture. At the time of my evaluation, the patient was getting a bad bath so the majority of the history was from the chart. Past Medical History Past Medical History: Hypertension, Musculoskeletal Disorder, Thyroid Disorder Additional Past Medical History / Comment(s): Multiple Sclerosis, HTN from the MS History of Any Multi-Drug Resistant Organisms: MRSA Date of last positivie culture/infection: 07/05/24 MDRO Source:: BUTTOCK Past Surgical History: Cholecystectomy, Hysterectomy, Orthopedic Surgery Additional Past Surgical History / Comment(s): indwelling suprapubic cath Past Psychological History: No Psychological Hx Reported Smoking Status: Never smoker Past Alcohol Use History: None Reported Past Drug Use History: None Reported - Past Family History Father Additional Family Medical History / Comment(s): Throat Cancer Medications and Allergies Home Medications Medication Instructions Recorded Confirmed Type Acetaminophen [Tylenol] 650 mg PO Q4H PRN 03/13/25 03/13/25 History Active Liquid Protein 30 ml PO BID@08,199903/13/25 03/13/25 History Ascorbic Acid [Vitamin C] 500 mg PO BID@0800,199903/13/25 03/13/25 History Aspirin EC [Ecotrin Low Dose] 81 mg PO DAILY@79903/13/25 03/13/25 History Baclofen 10 mg PO BID PRN 03/13/25 03/13/25 History Baclofen 10 mg PO DAILY@0800 03/13/25 03/13/25 History Baclofen [Lioresal] 20 mg PO HS@199903/13/25 03/13/25 History Cetirizine HCl [Zyrtec] 10 mg PO HS@199903/13/25 03/13/25 History Dextromethorphan Hbr Syrup 10 ml PO Q4H PRN 03/13/25 03/13/25 History Ergocalciferol (Vitamin D2) 1,250 mcg PO TH@0803/13/25 03/13/25 History [Drisdol (GEQ) 1,250 MCG (50,000 IU)] Fluticasone Nasal [place] [Flonase 2 spray EA NOSTRIL DAILY@0800 03/13/25 03/13/25 History Nasal [place]] HYDROcodone/APAP 10-325MG [[place] 1 tab PO HS@199903/13/25 03/13/25 History 10-325] HYDROcodone/APAP 10-325MG [[place] 1 tab PO Q12H PRN 03/13/25 03/13/25 History 10-325] Hyoscyamine Sulfate [Levsin] 0.125 mg PO Q4H PRN 03/13/25 03/13/25 History Ibuprofen [Motrin] 800 mg PO Q6H PRN 03/13/25 03/13/25 History Levothyroxine Sodium [Synthroid] 100 mcg PO DAILY@0500 03/13/25 03/13/25 History Lidocaine 4% Patch 1 patch TOPICAL DAILY PRN 03/13/25 03/13/25 History Loperamide [Imodium] 2 mg PO Q6H PRN 03/13/25 03/13/25 History Meclizine [Antivert] 25 mg PO Q8H PRN 03/13/25 03/13/25 History Menthol [[place]] 7.5 mg MM Q3H PRN 03/13/25 03/13/25 History Methenamine Hippurate 1 gm PO BID@0800,199903/13/25 03/13/25 History Methylprednisolone Powder 1,000 mg IV DAILY PRN 03/13/25 03/13/25 History Muscle Rub External Cream 10-15% 1 applic TOPICAL Q8H PRN 03/13/25 03/13/25 History Ondansetron [Zofran] 4 mg PO Q6H PRN 03/13/25 03/13/25 History Simvastatin [Zocor] 5 mg PO HS@199903/13/25 03/13/25 History Sodium Chloride [Saline Nasal Mist] 2 spray EA NOSTRIL Q1H PRN 03/13/25 03/13/25 History Teriflunomide [Aubagio] 14 mg PO DAILY@0800 03/13/25 03/13/25 History amLODIPine [Norvasc] 5 mg PO DAILY@0803/13/25 03/13/25 History diphenhydrAMINE HCL [Benadryl] 25 mg PO HS PRN 03/13/25 03/13/25 History guaiFENesin 400 mg PO Q4H PRN 03/13/25 03/13/25 History lisinopriL [Zestril] 40 mg PO DAILY@0800 03/13/25 03/13/25 History polyethylene glycoL 3350 [Miralax] 17 gm PO DAILY PRN 03/13/25 03/13/25 History Allergies Allergy/AdvReac Type Severity Reaction Status Date / Time cefdinir [From Omnicef] Allergy Nausea & Verified 03/13/25 17:48 Vomiting duloxetine [From Cymbalta] Allergy Unknown Verified 03/13/25 17:48 hydromorphone [From Dilaudid] Allergy Nausea & Verified 03/13/25 17:48 Vomiting Physical Examination Exam deferred due to the patient getting a bed bath. Results X-rays of the femur and knee from [facility] show a comminuted distal femur fracture and non-displaced proximal tibia and fibula fracture. There is a well-fixed total hip replacement proximally. The patient has severe osteopenia consistent with Multiple Sclerosis and being wheelchair bound. - Labs Labs: Abnormal Lab Results - Last 24 Hours (Table) 03/13/25 03/13/25 03/13/25 Range/Units 21:28 21:28 21:53 WBC 12.33 H (4.50-10.00) 10*3/uL RBC 2.48 L (4.10-5.20) 10*6/uL Hgb 6.9 L* (12.0-15.0) g/dL Hct 21.9 L (37.2-46.3) % MCHC 31.5 L (32.0-37.0) g/dL RDW 18.2 H (11.5-14.5) % Immature Gran # 0.05 H (0.00-0.04) 10*3/uL Neutrophils # 8.73 H (1.80-7.70) 10*3/uL Monocytes # 1.63 H (0.20-1.00) 10*3/uL Eosinophils # 0.02 L (0.04-0.35) 10*3/uL Sodium 136 L (137-145) mmol/L Potassium 3.3 L (3.5-5.1) mmol/L BUN 29 H (7-17) mg/dL BUN/Creatinine Ratio (12.00-20.00) Ratio Glucose 127 H (74-99) mg/dL Calcium 8.3 L (8.4-10.2) mg/dL TSH 0.400 L (0.465-4.680) mIU/L Crossmatch See Detail 03/14/25 03/14/25 Range/Units 07:35 07:35 WBC 10.09 H (4.50-10.00) 10*3/uL RBC 3.53 L (4.10-5.20) 10*6/uL Hgb 9.9 L (12.0-15.0) g/dL Hct 31.3 L (37.2-46.3) % MCHC 31.6 L (32.0-37.0) g/dL RDW 18.0 H (11.5-14.5) % Immature Gran # (0.00-0.04) 10*3/uL Neutrophils # (1.80-7.70) 10*3/uL Monocytes # 1.35 H (0.20-1.00) 10*3/uL Eosinophils # (0.04-0.35) 10*3/uL Sodium (137-145) mmol/L Potassium (3.5-5.1) mmol/L BUN (7-17) mg/dL BUN/Creatinine Ratio 32.14 H (12.00-20.00) Ratio Glucose (74-99) mg/dL Calcium 8.1 L (8.4-10.2) mg/dL TSH (0.465-4.680) mIU/L Crossmatch H & H 03/13/25 03/14/25 Range/Units 21:28 07:35 Hgb 6.9 L* 9.9 L (12.0-15.0) g/dL Hct 21.9 L 31.3 L (37.2-46.3) % Result Diagrams: 03/14/25 07:35 03/14/25 07:35 Assessment and Plan Assessment: Comminuted distal femur fracture Minimally displaced proximal tibia and fibula fractures Severe Osteopenia Well-fixed right total hip replacement Multiple Sclerosis (wheelchair bound) Sacral decubitis Ulcer Multiple Medical Problems Plan: The patient has a comminuted distal femur fracture and non-displaced proximal tibia and fibula fractures. She has multiple medical problems including Multiple Sclerosis and a sacral decubitis ulcer. She is also wheelchair bound and does not ambulate. Despite being low-demand and having multiple medical problems, I think she would be BEST treated by surgically addressing her femur fracture with an ORIF. This would be palliative and would help to make transfers and sitting in her wheel chair more comfortable. She is at a high risk of having a complication due to her multiple medical problems and poor bone quality. We will plan on surgery tomorrow afternoon. She is to remain on bedrest until surgery. Time with Patient: Greater than 30
[2025-03-15] MEDS ORDERED: LIDOCAINE 1% (10MG/ML) FOR IV START INTRADERMA PRN (07:49)
[2025-03-15] MEDS: LACTATED RINGERS 1,000 ML IV SCH (07:52)
[2025-03-15] MEDS: NON FORMULARY DRUG (Teriflunomide [Aubagio] 14 MG Tablet) PO SCH (07:54)
[2025-03-15] MEDS: LEVOTHYROXINE 100 MCG TAB PO SCH (08:05)
[2025-03-15 08:12] LABS: African American GFR (CKD) >90 (>60 ml/min/1.73 sqM); Anion Gap 6 mmol/L; Blood Urea Nitrogen 16 mg/dL (7-17); Calcium 8.2 mg/dL (8.4-10.2); Carbon Dioxide 25 mmol/L (22-30); Chloride 103 mmol/L (98-107); Glucose 105 mg/dL (74-99); Non-African American GFR(CKD) >90 (>60 ml/min/1.73 sqM); Potassium 3.6 mmol/L (3.5-5.1); Sodium 134 mmol/L (137-145)
[2025-03-15 08:16] LABS: Basophils # (A) 0.07 10*3/uL (0.00-0.10); Basophils % (A) 0.6 %; Eosinophils # (A) 0.08 10*3/uL (0.04-0.35); Eosinophils % (A) 0.7 %; HCT 28.2 % (37.2-46.3); Lymphocytes # (A) 0.93 10*3/uL (0.90-5.00); Lymphocytes % (A) 8.6 %; MCH 28.9 pg (27.0-32.0); MCHC 33.3 g/dL (32.0-37.0); MCV 86.8 fL (80.0-97.0); Mean Platelet Volume 11.1 fL (9.5-12.2); Monocytes # (A) 1.57 10*3/uL (0.20-1.00); Monocytes % (A) 14.5 %; Neutrophils # (A) 8.13 10*3/uL (1.80-7.70); Platelet Count 231 10*3/uL (140-440); RBC 3.25 10*6/uL (4.10-5.20); RDW 18.1 % (11.5-14.5); WBC 10.84 10*3/uL (4.50-10.00)
[2025-03-15 08:43] LABS: HGB 9.4 g/dL (12.0-15.0)
[2025-03-15] MEDS: METOPROLOL TARTRATE 12.5 MG TAB PO STA (10:25)
[2025-03-15 11:03] LABS: % Iron Saturation 4.95 (12.00-45.00); Iron 10 UG/DL (50-170); Total Iron Binding Capacity 202 UG/DL (228-460)
--- NOTE | 2025-03-15 11:33 | P.PN ---
Subjective Progress Note Date: 03/15/25 History of present illness: This is a 74-year-old female patient of Dr. Spears with past medical history of hypertension, hyperlipidemia, hypothyroidism, multiple sclerosis for 30+ years with severe debility, wheelchair-bound with sacral decubitus ulcer, suprapubic catheter, chronic vertigo. We have been asked to evaluate the patient for atrial fibrillation with RVR and for preop clearance. Patient gives history that she had slipped out of her wheelchair. She denies any loss of consciousness and did not hit her head. Patient was initially seen at [facility] and transferred to [facility]. She is scheduled for surgery this afternoon. Patient has been found to have fracture of the distal femur, proximal tibia and fibula. Blood pressure 117/76, heart rate 105, pulse ox 96% on room air. Patient is status post transfusion of 2 units of packed RBCs for initial hemoglobin 6.9. -EKG: Sinus tachycardia 122 bpm, EKG #2 artifact. Telemetry reveals sinus tachy cardia with PACs -Chest x-ray: No acute process. -CT right knee: Comminuted fractures distal femur. Fracture of the proximal metaphyseal tibia. Transverse fracture proximal fibular metaphysis. Fluid in the knee joint space. -Laboratory studies: WBC initially 12.3 now 10.1. Initial hemoglobin 6.9 and now 9.9. Sodium 136, potassium 3.3, BUN 29 creatinine 0.86. Troponin 0.017. TSH 0.4. Normal free T4 of 1.63. -Home cardiac medications: Amlodipine 5 mg daily, aspirin 81 mg daily, lisinopril 40 mg daily, simvastatin 5 mg at bedtime, patient is also on levothyroxine. -Echocardiogram performed on this hospitalization reveals normal LV size and systolic function. Mild mitral annular calcification and aortic valve sclerosis without restriction. Moderate aortic regurgitation and mild pulmonary hypertension. No pericardial effusion. -Event monitor performed 09/26 - 10/03/24 revealed sinus rhythm with maximum heart rate 157. No atrial fibrillation. 03/15 Patient seen and examined. Telemetry reviewed and patient is in sinus tach with PACs running in the low 100s. Patient is on a beta-pricilla 12.5 mg twice daily which will be increased. Patient denies chest pain or shortness of breath. Patient's orthopedic surgery was postponed until today. Physical examination: Gen: This is 74-year-old female in no acute distress VS: reviewed HEENT: Head is atraumatic, normocephalic. Pupils equal, round. Sclerae is anicteric. NECK: Supple. No JVD. LUNGS: Clear to auscultation. No wheezes or rhonchi. No intercostal retractions. HEART: Regular rate and rhythm. No murmur. ABDOMEN: Soft No tenderness. EXTREMITIES: No pedal edema. No calf tenderness. NEUROLOGICAL: Patient is awake, alert and oriented x3. Assessment: Sinus tachycardia with PACs Mechanical fall with resulting distal femur fracture, proximal tibia and fibula fractures Acute blood loss anemia status posttransfusion of 2 units of packed RBCs Hypertension Hyperlipidemia Hypothyroidism MS Moderate aortic regurgitation Mild pulmonary hypertension moderate AR, mild pulmonary hypertension. Cleared for surgery Plan: EKGs and telemetry have been reviewed with no episodes of clear atrial fibrillation Continue patient's home cardiac medications Increase atorvastatin to 20 mg Decrease levothyroxine to 75 mcg daily Increase metoprolol tartrate to 25 mg twice daily Patient is cleared from cardiology to undergo surgery as planned this afternoon. No absolute contraindications for surgery. Further recommendations to follow based upon clinical course Nurse practitioner note has been reviewed, I agree with documented findings and plan of care. Patient was seen and examined. Objective - Vital Signs Vital signs: Vital Signs Temp 98.9 F 03/15/25 03:36 Pulse 111 H 03/15/25 03:36 Resp 18 03/15/25 03:36 BP 143/80 03/15/25 03:36 Pulse Ox 95 03/15/25 03:36 FiO2 Intake & Output 03/14/25 03/15/25 03/15/25 18:59 06:59 18:59 Intake Total 240 Output Total 350 200 600 Balance -350 40 -600 Weight 68.039 kg 67.7 kg Intake: Oral 240 Output: Urine 350 200 600 - Labs CBC & Chem 7: 03/15/25 06:58 03/15/25 06:58 Labs: Abnormal Lab Results - Last 24 Hours (Table) 03/14/25 03/14/25 03/15/25 Range/Units 07:35 07:35 06:58 WBC 10.09 H 10.84 H (4.50-10.00) X 10*3/uL RBC 3.53 L 3.25 L (4.10-5.20) X 10*6/uL Hgb 9.9 L 9.4 L D (12.0-15.0) g/dL Hct 31.3 L 28.2 L (37.2-46.3) % MCHC 31.6 L (32.0-37.0) g/dL RDW 18.0 H (11.5-14.5) % Immature Gran # 0.06 H (0.00-0.04) 10*3/uL Neutrophils # 8.13 H (1.80-7.70) 10*3/uL Monocytes # 1.35 H 1.57 H (0.20-1.00) X 10*3/uL Sodium (137-145) mmol/L BUN/Creatinine Ratio 32.14 H (12.00-20.00) Ratio Glucose (74-99) mg/dL Calcium 8.1 L (8.7-10.3) mg/dL 03/15/25 Range/Units 06:58 WBC (4.50-10.00) X 10*3/uL RBC (4.10-5.20) X 10*6/uL Hgb (12.0-15.0) g/dL Hct (37.2-46.3) % MCHC (32.0-37.0) g/dL RDW (11.5-14.5) % Immature Gran # (0.00-0.04) 10*3/uL Neutrophils # (1.80-7.70) 10*3/uL Monocytes # (0.20-1.00) X 10*3/uL Sodium 134 L (137-145) mmol/L BUN/Creatinine Ratio (12.00-20.00) Ratio Glucose 105 H (74-99) mg/dL Calcium 8.2 L (8.7-10.3) mg/dL
[2025-03-15] MEDS: IV FLUID CONTINUATION 1,000 ML IV ONE (13:45)
[2025-03-15] MEDS: DEXAMETHASONE SOD PHOSPHATE 4 MG/ML 1 ML VIAL IV ONE (14:16)
[2025-03-15] MEDS: ONDANSETRON 4 MG/2 ML VIAL IVP PRN (14:16)
[2025-03-15] MEDS ORDERED: diphenhydrAMINE 50 MG/ML 1 ML VIAL ONE (14:50)
[2025-03-15] MEDS ORDERED: TRANEXAMIC 1,000 MG/100ML-NACL PREMIX BAG ONE (14:50)
[2025-03-15] MEDS ORDERED: NEOSTIGMINE 1 MG/ML 10 ML VIAL ONE (14:50)
[2025-03-15] MEDS ORDERED: PROPOFOL 10 MG/ML 20 ML VIAL IV ONE (14:50)
[2025-03-15] MEDS ORDERED: PHENYLEPHRINE-0.9% NACL SYG 1,000 MCG/10 ML SYRINGE ONE (14:50)
[2025-03-15] MEDS ORDERED: GLYCOPYRROLATE 0.2 MG/ML 2 ML VIAL ONE (14:50)
[2025-03-15] MEDS ORDERED: fentaNYL (PF) 50 MCG/ML 2 ML AMP ONE (14:50)
[2025-03-15] MEDS ORDERED: ROCURONIUM 10 MG/ML (5 ML VIAL) IV ONE (14:50)
[2025-03-15] MEDS ORDERED: LIDOCAINE 1% INJ 10MG/ML (20 ML MDV) ONE (14:50)
[2025-03-15] MEDS: SODIUM CHLORIDE 0.9% 100 ML with ceFAZolin 2,000 MG IV ONE (14:54)
[2025-03-15] MEDS: VANCOMYCIN 1,000 MG VIAL MISCELLANE ONE (16:38)
[2025-03-15] MEDS: LACTATED RINGERS 1,000 ML IV ONE (16:49)
--- NOTE | 2025-03-15 17:10 | XR ---
EXAMINATION TYPE: XR femur RT, FL guidance operating room Intraoperative/procedural fluoroscopic serv ices were provided. CLINICAL INDICATION:Female, 74 years old with history of ORIF DISTAL FEMUR RT PROXIMAL TIB-FIB FX; , [facility] FINDINGS: Post fixation changes from ORIF of the distal femur fracture with improved alignment. Hardware appear s intact with appropriate alignment. Redemonstration of right hip arthroplasty change. No radiographi c evidence for complication. Total fluoroscopy time is 1.58 min. DAP: 3.3984 Gycm2 Please see the operative/procedural note for further details. [facility], , 03/15/2025 5:08 PM
[2025-03-15] MEDS ORDERED: hydrOXYzine pamoate 25 MG CAP PO PRN (17:31)
[2025-03-15] MEDS ORDERED: NALOXONE 0.4 MG/ML 1 ML VIAL IV PRN (17:31)
[2025-03-15] MEDS ORDERED: MORPHINE SULFATE 2 MG/ML SYRINGE IV PRN ×2 (17:31)
--- NOTE | 2025-03-15 17:38 | P.OP ---
Date of Procedure: 03/15/25 Preoperative Diagnosis: 1. Comminuted distal third femur fracture, right 2. Minimally displaced right proximal tibia and fibula fractures 3. Multiple sclerosis 4. Nonambulatory, wheelchair-bound 5. Open sacral decubitus ulcer 6. Severe osteopenia 7. History of MRSA Postoperative Diagnosis: Same Procedure(s) Performed: 1. Open reduction internal fixation right distal third femur fracture 2. Nonoperative management right proximal tibia and fibula fracture Anesthesia: GETA Surgeon: Trip Hood Asphalt Surface Heater Operator #1: Zhou Parrish Asphalt Surface Heater Operator #2: Robe Krause Estimated Blood Loss (ml): 300 IV fluids (ml): 800 Urine output (ml): 300 Pathology: none sent Condition: stable Disposition: PACU Indications for Procedure: The patient is a very pleasant 74-year-old female with multiple medical problems including multiple sclerosis which has resulted in her being wheelchair-bound and completely nonambulatory, history of MRSA, and a sacral decubitus ulcer who was transferred to our hospital from [facility] after she fell out of her wheelchair. X-rays showed a displaced and comminuted distal third femur fracture. She also had minimally displaced proximal tibia and fibula fractures. The patient was admitted under my care. Internal medicine and cardiology was consulted for preoperative clearance. I met with the patient and her family preoperatively to discuss her injury and treatment options. Even though she is low demand and nonambulatory her fracture is grossly displaced and unstable. I think she would do poorly with nonoperative treatment and my recommendation was to proceed with open reduction and internal fixation acknowledging her high risk of complication to stabilize her fracture and facilitate transfers and comfort in a wheelchair. I recommended nonsurgical treatment of her tibia and fibula fractures with close follow-up. We discussed the potential risks and complications of surgery at length including but certainly not limited to risks of anesthesia, superficial or deep infection, delayed union, nonunion, malunion, symptomatic hardware, delayed wound healing, damage to local blood vessels or nerves, medical complications including DVT, PE, failure to thrive, pressure sore, pneumonia, acute coronary event and possibly . The patient and her family understand that while these are the most common complications other less common complications are possible. They also acknowledged her elevated risk of complication due to her exceedingly poor bone quality, open ulcer and history of MRSA. They all provided their verbal and written consent to go forward with surgery. Operative Findings: There was a comminuted distal third femur fracture. The patient had exceedingly poor bone quality consistent with her medical diagnosis of multiple sclerosis and being wheelchair-bound and completely nonambulatory. Description of Procedure: The patient was identified in preoperative holding and the correct right leg was marked with my initials. I reviewed the consent form with the patient and her family. All their questions were answered. The patient was then brought back to the operating room. She was given a general anesthetic, preoperative antibiotics, and tranexamic acid while on her hospital bed. The patient was then carefully transferred onto the OR table. The left leg was secured to the OR table with foam and tape. The surgical leg was elevated with a bone foam ramp and her buttock was internally rotated to facilitate imaging. Nonsterile drapes were applied. Fluoroscopy was brought in and gentle traction was pulled on the leg. Orthogonal views showed reduction of the fracture. The right leg was then prepped and draped in standard sterile fashion. Prior to starting surgery a timeout was performed identifying the correct patient, operative extremity, and procedure. I began by making a straight lateral incision to the femur starting at the knee and extending proximally to just proximal to the total hip stem. Skin incision was made with a scalpel and dissection was carried down carefully through the subcutaneous tissue with cautery. The IT band was identified and a Ma was used to gently tease off soft tissue. The IT band was then incised longitudinally in line with the skin incision. I then elevated the vastus lateralis off of the intermuscular septum down to the femur both proximally and distally leaving the vastus intact over the comminuted fracture. Perforators were controlled with bipolar sealant. The femur was exposed both proximally and distally. A bump was placed under the fracture and longitudinal traction was applied to the femur. Fluoroscopy was again brought in and the fracture appeared to be relatively well reduced. I then selected a precontoured distal femoral locking plate that spanned from the distal femur proximal to the hip stem. The length and position of the plate was verified with biplanar f luoroscopic images. The plate was then fixated using K wires both proximally and distally making sure the plate was positioned appropriately. Nonlocking screws were then placed proximally and distally bringing the plate down to bone. Locking screws were then placed distal to the fracture. Position of screws was verified with fluoroscopy. Once all of the locking holes distal to the fracture were fixated with screws additional locking screws were placed proximally in the shaft and above the hip stem. Final fluoroscopic images showed excellent reduction of the fracture and acceptable position of all hardware. The wound was then thoroughly irrigated with Irrisept and sterile saline. The wound appeared dry with no active bleeding. 2 g of vancomycin powder was placed deep to the vastus given her history of MRSA. The IT band and fascia was then closed with running Quill suture. The deep subcu was likewise closed with running barbed sutures. The superficial subcu was closed with a running 2-0 STRATAFIX. The skin was closed with a running 3-0 Monocryl. The skin closure was reinforced with skin glue. At the conclusion of skin closure I verified that all instrument, sponge, and sharp counts were correct. A sterile dressing was applied over the closed incision. The drapes were taken down and an Ángel wrap was applied over the patient's leg. She was then placed in a knee immobilizer. The patient was then carefully transferred to recovery having tolerated the procedure well. Robe Krause PA-C and Zhou Parrish MD were required as skilled assistants due to the complexity of surgery for positioning, draping, exposure, reduction of fracture, placement of hardware and closure of wound. Plan: The patient is to remain strictly nonweightbearing on her right upper extremity. We will leave her knee immobilizer in place until hinged knee brace is ordered and delivered. She will receive 2 doses of postoperative antibiotics. DVT prophylaxis with aspirin 81 mg twice daily unless internal medicine would like stronger chemoprophylaxis. Appreciate internal medicine's assistance with perioperative medical management. Discharge planning is in progress. She will need follow-up in the office in 2 weeks for x-rays of the right femur and a wound check.
[2025-03-15] MEDS: fentaNYL (PF) 50 MCG/ML 2 ML AMP IV PRN (18:01)
[2025-03-15] MEDS: SODIUM CHLORIDE 0.9% 1,000 ML IV ONE (18:31)
[2025-03-15 18:49] LABS: Basophils # (A) 0.04 10*3/uL (0.00-0.10); Basophils % (A) 0.3 %; Eosinophils # (A) 0.01 10*3/uL (0.04-0.35); Eosinophils % (A) 0.1 %; HCT 27.5 % (37.2-46.3); Lymphocytes # (A) 0.36 10*3/uL (0.90-5.00); MCHC 32.7 g/dL (32.0-37.0); MCV 88.7 fL (80.0-97.0); Mean Platelet Volume 10.8 fL (9.5-12.2); Monocytes # (A) 0.74 10*3/uL (0.20-1.00); Monocytes % (A) 6.2 %; Neutrophils # (A) 10.67 10*3/uL (1.80-7.70); Platelet Count 230 10*3/uL (140-440); RDW 18.4 % (11.5-14.5); WBC 11.87 10*3/uL (4.50-10.00)
[2025-03-15] MEDS: METOPROLOL TARTRATE 25 MG TAB PO SCH (20:48)
[2025-03-15] MEDS: MORPHINE SULFATE 2 MG/ML SYRINGE IV PRN (20:48)
[2025-03-15] MEDS: ASPIRIN 81 MG PO SCH (20:48)
[2025-03-15] MEDS: BACLOFEN 10 MG TAB PO PRN (20:57)
[2025-03-15] MEDS: amLODIPine 5 MG TAB PO SCH (22:03)
[2025-03-15] MEDS: SENNOSIDES-DOCUSATE SODIUM 1 EACH TAB PO SCH (22:03)
[2025-03-15] MEDS: LORATADINE 10 MG TAB PO SCH (22:03)
--- NOTE | 2025-03-15 22:43 | P.PN ---
Subjective Progress Note Date: 03/15/25 Patient is a 74-year-old female with past medical history of hypertension, hyperlipidemia, hypothyroidism, multiple sclerosis for 30+ years with severe disability and wheelchair-bound with sacral decub ulcer, suprapubic catheter and chronic vertigo. Patient presents to ER status post fall from the wheelchair when it hit at the door. Patient slipped out of the wheelchair. Initially presented to [facility] and was transferred to [facility] for orthopedic surgery evaluation. Denied any loss of consciousness or in the eating her head. On admission hemoglobin was 6.9 and patient received 2 units of PRBC transfusion, hemoglobin went up to 9.[address] right knee showed comminuted fractures distal femur including the distal diaphysis angulated fracture and from a more distal transverse appearing fracture at the metaphysis of the femoral condyles. Fracture of the proximal metaphyseal tibia. Transverse fracture proximal fibular metaphysis. Fluid level within the knee joint space. EKG showed sinus tachycardia EKG 1. EKG 2 showed A-fib with RVR might be artifact. Chest x-ray showed no acute cardiopulmonary process. Laboratory data showed WBC 12.3 hemoglobin 6.9 and platelets 312 sodium 136 potassium 3.3 chloride 104 bicarb is 26 BUN 29 creatinine 0.86 and blood sugar 127 calcium 8.3 magnesium 1.8 TSH 0.4 and free T4 levels 1.63 troponin 0.017 03/15/2025 Patient is resting in the bed. Awake alert and oriented x 3. Right lower extremity pain is controlled. Patient is scheduled for surgery today afternoon. Laboratory data showed WBC 10.8 hemoglobin 9.4 and platelets 231 sodium 134 potassium 3.6 chloride 103 bicarbonate 25 BUN 16 and creatinine 0.52 calcium 8.2 iron 10 TIBC 202 and transferrin saturation 4.95 and B12 294. Current medications reviewed. Objective - Vital Signs Vital signs: Vital Signs Temp 98.2 F 03/15/25 17:25 Pulse 118 H 03/15/25 18:10 Resp 18 03/15/25 18:10 BP 136/72 03/15/25 18:10 Pulse Ox 94 L 03/15/25 18:10 FiO2 Intake & Output 03/15/25 03/15/25 03/16/25 06:59 18:59 06:59 Intake Total 240 1200 Output Total 200 1200 Balance 40 0 Weight 67.7 kg Intake: IV 1200 Oral 240 Output: Urine 200 900 Estimated Blood Loss 300 Other: Voiding Method Indwelling Catheter # Bowel Movements 1 - Exam PHYSICAL EXAMINATION: Patient is lying in the bed comfortably, no acute distress, awake alert and oriented.. HEENT: Normocephalic. Neck is supple. Pupils reactive. Nostrils clear. Oral cavity is moist. Neck reveals no JVD, carotid bruits, or thyromegaly. CHEST EXAMINATION: Trachea is central. Symmetrical expansion. Lung ruff clear to auscultation and percussion. CARDIAC: Normal S1, S2 with no gallops. No murmurs ABDOMEN: Soft. Bowel sounds normal. No organomegaly. No abdominal bruits. Extremities: reveal no edema. No clubbing or cyanosis Neurologically awake, alert, oriented x3. Able to move all extremities while in bed. Right lower extremity decreased range of motion. No gross focal deficits noted Skin: No rash or skin lesions. Psychiatric: Coperative. Nonsuicidal, anxious. Musculoskeletal: No joint swelling. - Labs CBC & Chem 7: 03/15/25 18:32 03/15/25 06:58 Labs: Abnormal Lab Results - Last 24 Hours (Table) 03/15/25 03/15/25 03/15/25 Range/Units 06:58 06:58 18:32 WBC 10.84 H 11.87 H (4.50-10.00) 10*3/uL RBC 3.25 L 3.10 L (4.10-5.20) 10*6/uL Hgb 9.4 L D 9.0 L (12.0-15.0) g/dL Hct 28.2 L 27.5 L (37.2-46.3) % Immature Gran # 0.06 H 0.05 H (0.00-0.04) 10*3/uL Neutrophils # 8.13 H 10.67 H (1.80-7.70) 10*3/uL Lymphocytes # 0.36 L (0.90-5.00) 10*3/uL Monocytes # 1.57 H (0.20-1.00) 10*3/uL Eosinophils # 0.01 L (0.04-0.35) 10*3/uL Sodium 134 L (137-145) mmol/L Glucose 105 H (74-99) mg/dL Calcium 8.2 L (8.4-10.2) mg/dL Iron 10 L (50-170) UG/DL TIBC 202 L (228-460) UG/DL % Saturation 4.95 L (12.00-45.00) Transferrin 144.0 L (204.0-354.0) mg/dL Assessment and Plan Assessment: Status post mechanical fall from the wheelchair. Comminuted fractures distal femur including the distal diaphysis angulated fracture and from my more distal transverse fracture Fracture of proximal metaphyseal tibia Transverse fracture proximal fibular metaphysis. Sinus tachycardia with PACs on EKG as per cardiology. Acute blood loss anemia. Status post 2 units of transfusion. Hemoglobin 6.9 on admission went up to 9.9 Normocytic anemia. Iron deficiency Low normal vitamin B12 level Hypertension. Patient is on Norvasc, lisinopril at home. Hyperemia Hypothyroidism. Low TSH and normal free T4 level. Multiple sclerosis Moderate aortic regurgitation and mild pulmonary hypertension DVT prophylaxis. Plan: Patient will be continued on telemonitoring. Patient is on metoprolol 12.5 mg twice daily.2D echocardiogram was done. TSH dose decreased to 75 mcg daily due to low TSH level. Atorvastatin increased to 20 mg at bedtime. Continue with home medications. Norvasc and lisinopril is on hold due to low blood pressure. Monitor H&H. Patient will need iron supplementation at discharge. Scheduled for surgery today afternoon Further recommendations based on the clinical course. Time with Patient: Greater than 30
[2025-03-15] MEDS: ceFAZolin 2 GM in DEXTROSE 5% IN WATER 50 ML IVPB SCH (23:03)
--- NOTE | 2025-03-16 08:06 | P.PN ---
Subjective Patient was painful overnight but better this morning. She denies chest pain or shortness of breath. Objective - Vital Signs Vital signs: Vital Signs Temp 98.6 F 03/16/25 03:22 Pulse 107 H 03/16/25 03:22 Resp 18 03/16/25 03:22 BP 115/74 03/16/25 03:22 Pulse Ox 94 L 03/16/25 03:22 FiO2 Intake & Output 03/15/25 03/16/25 03/16/25 18:59 06:59 18:59 Intake Total 1200 Output Total 1200 Balance 0 Weight 69.3 kg Intake: IV 1200 Output: Urine 900 Estimated Blood Loss 300 Other: Voiding Method Indwelling Catheter Indwelling Catheter # Bowel Movements 1 - Exam The patient is resting comfortably in bed. She is alert and able to answer questions. A knee immobilizer is in place on the right leg. The toes are swollen but warm and well-perfused. She is moving her toes up and down. - Labs CBC & Chem 7: 03/15/25 18:32 03/15/25 06:58 Labs: Abnormal Lab Results - Last 24 Hours (Table) 03/15/25 03/15/25 03/15/25 Range/Units 06:58 06:58 18:32 WBC 10.84 H 11.87 H (4.50-10.00) 10*3/uL RBC 3.25 L 3.10 L (4.10-5.20) 10*6/uL Hgb 9.4 L D 9.0 L (12.0-15.0) g/dL Hct 28.2 L 27.5 L (37.2-46.3) % Immature Gran # 0.06 H 0.05 H (0.00-0.04) 10*3/uL Neutrophils # 8.13 H 10.67 H (1.80-7.70) 10*3/uL Lymphocytes # 0.36 L (0.90-5.00) 10*3/uL Monocytes # 1.57 H (0.20-1.00) 10*3/uL Eosinophils # 0.01 L (0.04-0.35) 10*3/uL Sodium 134 L (137-145) mmol/L Glucose 105 H (74-99) mg/dL Calcium 8.2 L (8.4-10.2) mg/dL Iron 10 L (50-170) UG/DL TIBC 202 L (228-460) UG/DL % Saturation 4.95 L (12.00-45.00) Transferrin 144.0 L (204.0-354.0) mg/dL Assessment and Plan Assessment: Postoperative day #1 status post open reduction internal fixation right distal femur fracture Nonoperative management proximal tibia and fibula fracture, right leg Multiple sclerosis Nonambulatory at baseline Likely acute on chronic anemia requiring transfusion prior to surgery History of MRSA History of pressure ulcers Plan: 1. Nonweightbearing right lower extremity, leave knee immobilizer and Ángel wrap in place for an additional 24 hours 2. An order for a hinged knee brace was placed in the chart 3. 2 doses postoperative antibiotics 4. DVT prophylaxis with aspirin 81 mg twice daily unless internal medicine would like stronger chemoprophylaxis 5. Physical therapy, attempt to mobilize out of bed to chair 6. Offload pressure points, consider wound consultation for chronic pressure ulcers 7. Appreciate internal medicine's assistance with perioperative medical management 8. Discharge planning is in progress
[2025-03-16] MEDS: NON FORMULARY DRUG (Methenamine Hippurate [Methenamine Hippurate] 1 GM Tablet) PO SCH (08:07)
[2025-03-16] MEDS: amLODIPine 10 MG TAB PO SCH (08:08)
[2025-03-16] MEDS: BACLOFEN 10 MG TAB PO SCH ×2 (08:08→19:59)
[2025-03-16 09:29] LABS: African American GFR (CKD) >90 (>60 ml/min/1.73 sqM); Anion Gap 5 mmol/L; Blood Urea Nitrogen 14 mg/dL (7-17); Calcium 8.1 mg/dL (8.4-10.2); Carbon Dioxide 24 mmol/L (22-30); Chloride 105 mmol/L (98-107); Glucose 133 mg/dL (74-99); Non-African American GFR(CKD) 89 (>60 ml/min/1.73 sqM); Sodium 134 mmol/L (137-145)
[2025-03-16] MEDS: MORPHINE SULFATE 2 MG/ML SYRINGE IV PRN (11:17)
--- NOTE | 2025-03-16 11:22 | P.CONS ---
History of Present Illness - Reason for Consult Consult date: 03/16/25 wound care - History of Present Illness This is a 74-year-old patient known to the wound center with a chronic stage IV pressure ulceration. Patient has been utilizing negative pressure wound VAC to the site. However patient is being worked up for a flap with plastics. Patient had MRI and waiting on blood work. Original cause of wound was Pressure Injury. The date acquired was: 08/20/2023. The wound has been in treatment 59 weeks. The wound is currently classified as a Category/Stage IV wound with etiology of Pressure Ulcer and is located on the Left Ischial Tuberosity. The wound measures 1.1cm length x 1.2cm width x 3.1cm depth; 1.037cm^2 area and 3.214cm^3 volume. There is bone, Fat Layer (Subcutaneous Tissue), and fascia exposed. There is no tunneling or undermining noted. There is a large amount of serosanguineous drainage noted. The wound margin is distinct with the outline attached to the wound base. There is medium (34-66%) pink granulation within the wound bed. There is a medium (34-66%) amount of necrotic tissue within the wound bed including Adherent Slough. The periwound skin appearance exhibited: Excoriation, Rash, Scarring, Maceration, Erythema. The periwound skin appearance did not exhibit: Callus, Crepitus, Induration, Dry/Scaly, Atrophie Donna, Cyanosis, Ecchymosis, Hemosiderin Staining, Mottled, Pallor, Rubor. The surrounding wound skin color is noted with erythema which is circumferential. Periwound temperature was noted as No Abnormality. Due to patient's inability to lay on her side for a negative pressure wound VAC application we will change to absorptive silver. Review Of Systems: Constitutional: No fever, no chills, no night sweats. No weight change. No weakness, fatigue or lethargy. No daytime sleepiness. Integumentary:reports wounds, no lesions. No rash or pruritus. No unusual bruising. No change in hair or nails. Physical exam: General Appearance: Alert, cooperative, no distress, appears stated age. Skin: See HPI all other Skin color, texture, tugor normal, no rashes or lesions. Neurologic: Alert oriented x3 Assessment: 1. Stage IV pressure ulcer sacrum 2. Multiple sclerosis 3. Osteomyelitis Plan: 1. Sacral ulceration: Apply absorptive silver and sure that it is touching the base of the ulceration. Moisten if needed, apply bordered foam. Change to absorptive silver on Thursday however change the outer dressing daily. Patient will return to the wound care center for monthly appointments. Thank for the consultation any questions please contact the wound care center DNP note has been reviewed and discussed with Dr. Hannah and the impression and plan of care has been directed as dictated. Past Medical History Past Medical History: Hypertension, Musculoskeletal Disorder, Thyroid Disorder Additional Past Medical History / Comment(s): Multiple Sclerosis, HTN from the MS History of Any Multi-Drug Resistant Organisms: MRSA Year Discovered:: 07/05/24 MDRO Source:: BUTTOCK Past Surgical History: Cholecystectomy, Hysterectomy, Orthopedic Surgery Additional Past Surgical History / Comment(s): indwelling suprapubic cath Past Psychological History: No Psychological Hx Reported Smoking Status: Never smoker Past Alcohol Use History: None Reported Past Drug Use History: None Reported - Past Family History Father Additional Family Medical History / Comment(s): Throat Cancer Medications and Allergies Home Medications Medication Instructions Recorded Confirmed Type Acetaminophen [Tylenol] 650 mg PO Q4H PRN 03/13/25 03/13/25 History Active Liquid Protein 30 ml PO BID@08,199903/13/25 03/13/25 History Ascorbic Acid [Vitamin C] 500 mg PO BID@0800,199903/13/25 03/13/25 History Aspirin EC [Ecotrin Low Dose] 81 mg PO DAILY@79903/13/25 03/13/25 History Baclofen 10 mg PO BID PRN 03/13/25 03/13/25 History Baclofen 10 mg PO DAILY@0800 03/13/25 03/13/25 History Baclofen [Lioresal] 20 mg PO HS@199903/13/25 03/13/25 History Cetirizine HCl [Zyrtec] 10 mg PO HS@199903/13/25 03/13/25 History Dextromethorphan Hbr Syrup 10 ml PO Q4H PRN 03/13/25 03/13/25 History Ergocalciferol (Vitamin D2) 1,250 mcg PO TH@0803/13/25 03/13/25 History [Drisdol (GEQ) 1,250 MCG (50,000 IU)] Fluticasone Nasal [place] [Flonase 2 spray EA NOSTRIL DAILY@0803/13/25 03/13/25 History Nasal [place]] HYDROcodone/APAP 10-325MG [[place] 1 tab PO HS@199903/13/25 03/13/25 History 10-325] HYDROcodone/APAP 10-325MG [[place] 1 tab PO Q12H PRN 03/13/25 03/13/25 History 10-325] Hyoscyamine Sulfate [Levsin] 0.125 mg PO Q4H PRN 03/13/25 03/13/25 History Ibuprofen [Motrin] 800 mg PO Q6H PRN 03/13/25 03/13/25 History Levothyroxine Sodium [Synthroid] 100 mcg PO DAILY@0500 03/13/25 03/13/25 History Lidocaine 4% Patch 1 patch TOPICAL DAILY PRN 03/13/25 03/13/25 History Loperamide [Imodium] 2 mg PO Q6H PRN 03/13/25 03/13/25 History Meclizine [Antivert] 25 mg PO Q8H PRN 03/13/25 03/13/25 History Menthol [Lucas] 7.5 mg MM Q3H PRN 03/13/25 03/13/25 History Methenamine Hippurate 1 gm PO BID@0800,199903/13/25 03/13/25 History Methylprednisolone Powder 1,000 mg IV DAILY PRN 03/13/25 03/13/25 History Muscle Rub External Cream 10-15% 1 applic TOPICAL Q8H PRN 03/13/25 03/13/25 Hi story Ondansetron [Zofran] 4 mg PO Q6H PRN 03/13/25 03/13/25 History Simvastatin [Zocor] 5 mg PO HS@199903/13/25 03/13/25 History Sodium Chloride [Saline Nasal Mist] 2 spray EA NOSTRIL Q1H PRN 03/13/25 03/13/25 History Teriflunomide [Aubagio] 14 mg PO DAILY@0803/13/25 03/13/25 History amLODIPine [Norvasc] 5 mg PO DAILY@0800 03/13/25 03/13/25 History diphenhydrAMINE HCL [Benadryl] 25 mg PO HS PRN 03/13/25 03/13/25 History guaiFENesin 400 mg PO Q4H PRN 03/13/25 03/13/25 History lisinopriL [Zestril] 40 mg PO DAILY@0800 03/13/25 03/13/25 History polyethylene glycoL 3350 [Miralax] 17 gm PO DAILY PRN 03/13/25 03/13/25 History Allergies Allergy/AdvReac Type Severity Reaction Status Date / Time cefdinir [From Omnicef] Allergy Nausea & Verified 03/15/25 14:03 Vomiting duloxetine [From Cymbalta] Allergy Unknown Verified 03/15/25 14:03 hydromorphone [From Dilaudid] Allergy Nausea & Verified 03/15/25 14:03 Vomiting Physical Exam Vitals: Vital Signs Temp Pulse Resp BP Pulse Ox 03/16/25 08:00 99 F 111 H 17 129/57 94 L 03/16/25 03:22 98.6 F 107 H 18 115/74 94 L 03/15/25 23:49 98.7 F 107 H 18 128/70 93 L 03/15/25 20:40 98.5 F 120 H 20 122/71 96 03/15/25 18:10 118 H 18 136/72 94 L 03/15/25 17:55 118 H 20 145/72 94 L 03/15/25 17:40 104 H 15 139/71 93 L 03/15/25 17:25 98.2 F 100 10 L 145/65 92 L 03/15/25 16:00 98.8 F 113 H 16 141/73 95 03/15/25 14:05 98.3 F 112 H 18 159/67 96 03/15/25 12:00 106 H 18 126/68 96 Intake and Output 03/15/25 03/16/25 03/16/25 22:59 06:59 14:59 Intake Total 100 240 Output Total 400 Balance -300 240 Intake: IV 100 Oral 240 Output: Urine 100 Estimated Blood Loss 300 Other: Voiding Method Indwelling Catheter Indwelling Catheter Indwelling Catheter Weight 69.3 kg Results CBC & Chem 7: 03/15/25 18:32 03/16/25 08:36 Labs: Abnormal Lab Results - Last 24 Hours (Table) 03/15/25 03/16/25 Range/Units 18:32 08:36 WBC 11.87 H (4.50-10.00) 10*3/uL RBC 3.10 L (4.10-5.20) 10*6/uL Hgb 9.0 L (12.0-15.0) g/dL Hct 27.5 L (37.2-46.3) % Immature Gran # 0.05 H (0.00-0.04) 10*3/uL Neutrophils # 10.67 H (1.80-7.70) 10*3/uL Lymphocytes # 0.36 L (0.90-5.00) 10*3/uL Eosinophils # 0.01 L (0.04-0.35) 10*3/uL Sodium 134 L (137-145) mmol/L Glucose 133 H (74-99) mg/dL Calcium 8.1 L (8.4-10.2) mg/dL Assessment and Plan (1) Pressure ulcer of sacral region, stage 4 Current Visit: Yes Status: Acute Code(s): L89.154 - PRESSURE ULCER OF SACRAL REGION, STAGE 4 SNOMED Code(s): 57793238516771 (2) Multiple sclerosis Current Visit: Yes Status: Acute Code(s): G35 - MULTIPLE SCLEROSIS SNOMED Code(s): 82301823 (3) Osteomyelitis, unspecified Current Visit: Yes Status: Acute Code(s): M86.9 - OSTEOMYELITIS, UNSPECIFIED SNOMED Code(s): 18468674
[2025-03-16] MEDS: CYANOCOBALAMIN 500 MCG TAB PO SCH (11:23)
[2025-03-16] MEDS: ERGOCALCIFEROL 1,250 MCG (50,000 IU) CAPSULE PO SCH (12:24)
--- NOTE | 2025-03-16 13:03 | P.PN ---
Subjective Progress Note Date: 03/16/25 History of present illness: This is a 74-year-old female patient of Dr. Spears with past medical history of hypertension, hyperlipidemia, hypothyroidism, multiple sclerosis for 30+ years with severe debility, wheelchair-bound with sacral decubitus ulcer, suprapubic catheter, chronic vertigo. We have been asked to evaluate the patient for atrial fibrillation with RVR and for preop clearance. Patient gives history that she had slipped out of her wheelchair. She denies any loss of consciousness and did not hit her head. Patient was initially seen at [facility] and transferred to [facility]. She is scheduled for surgery this afternoon. Patient has been found to have fracture of the distal femur, proximal tibia and fibula. Blood pressure 117/76, heart rate 105, pulse ox 96% on room air. Patient is status post transfusion of 2 units of packed RBCs for initial hemoglobin 6.9. -EKG: Sinus tachycardia 122 bpm, EKG #2 artifact. Telemetry reveals sinus tachy cardia with PACs -Chest x-ray: No acute process. -CT right knee: Comminuted fractures distal femur. Fracture of the proximal metaphyseal tibia. Transverse fracture proximal fibular metaphysis. Fluid in the knee joint space. -Laboratory studies: WBC initially 12.3 now 10.1. Initial hemoglobin 6.9 and now 9.9. Sodium 136, potassium 3.3, BUN 29 creatinine 0.86. Troponin 0.017. TSH 0.4. Normal free T4 of 1.63. -Home cardiac medications: Amlodipine 5 mg daily, aspirin 81 mg daily, lisinopril 40 mg daily, simvastatin 5 mg at bedtime, patient is also on levothyroxine. -Echocardiogram performed on this hospitalization reveals normal LV size and systolic function. Mild mitral annular calcification and aortic valve sclerosis without restriction. Moderate aortic regurgitation and mild pulmonary hypertension. No pericardial effusion. -Event monitor performed 09/26 - 10/03/24 revealed sinus rhythm with maximum heart rate 157. No atrial fibrillation. 03/15 Patient seen and examined. Telemetry reviewed and patient is in sinus tach with PACs running in the low 100s. Patient is on a beta-pricilla 12.5 mg twice daily which will be increased. Patient denies chest pain or shortness of breath. Patient's orthopedic surgery was postponed until today. 5/8 Patient seen and examined. Blood pressure 115/74, heart rate 129084, pulse ox 94% on room air. Yesterday, patient underwent ORIF right distal femur fracture. Physical examination: Gen: This is 74-year-old female in no acute distress VS: reviewed HEENT: Head is atraumatic, normocephalic. Pupils equal, round. Sclerae is anicteric. NECK: Supple. No JVD. LUNGS: Clear to auscultation. No wheezes or rhonchi. No intercostal retr actions. HEART: Regular rate and rhythm. No murmur. ABDOMEN: Soft No tenderness. EXTREMITIES: No pedal edema. No calf tenderness. NEUROLOGICAL: Patient is awake, alert and oriented x3. Assessment: Sinus tachycardia with PACs Mechanical fall with resulting distal femur fracture, proximal tibia and fibula fractures status post ORIF 03/15 Acute blood loss anemia status posttransfusion of 2 units of packed RBCs Hypertension Hyperlipidemia Hypothyroidism MS Moderate aortic regurgitation Mild pulmonary hypertension moderate AR, mild pulmonary hypertension. Cleared for surgery Plan: EKGs and telemetry have been reviewed with no episodes of clear atrial fibrillation Continue patient's home cardiac medications Increase atorvastatin to 20 mg Decrease levothyroxine to 75 mcg daily Continue metoprolol tartrate 25 mg twice daily No medication changes made today Further recommendations to follow based upon clinical course Nurse practitioner note has been reviewed, I agree with documented findings and plan of care. Patient was seen and examined. Objective - Vital Signs Vital signs: Vital Signs Temp 99 F 03/16/25 08:00 Pulse 111 H 03/16/25 08:00 Resp 17 03/16/25 08:00 BP 129/57 03/16/25 08:00 Pulse Ox 94 L 03/16/25 08:00 FiO2 Intake & Output 03/15/25 03/16/25 03/16/25 18:59 06:59 18:59 Intake Total 1200 240 Output Total 1200 Balance 0 240 Weight 69.3 kg Intake: IV 1200 Oral 240 Output: Urine 900 Estimated Blood Loss 300 Other: Voiding Method Indwelling Catheter Indwelling Catheter Indwelling Catheter # Bowel Movements 1 - Labs CBC & Chem 7: 03/15/25 18:32 03/16/25 08:36 Labs: Abnormal Lab Results - Last 24 Hours (Table) 03/15/25 03/16/25 Range/Units 18:32 08:36 WBC 11.87 H (4.50-10.00) 10*3/uL RBC 3.10 L (4.10-5.20) 10*6/uL Hgb 9.0 L (12.0-15.0) g/dL Hct 27.5 L (37.2-46.3) % Immature Gran # 0.05 H (0.00-0.04) 10*3/uL Neutrophils # 10.67 H (1.80-7.70) 10*3/uL Lymphocytes # 0.36 L (0.90-5.00) 10*3/uL Eosinophils # 0.01 L (0.04-0.35) 10*3/uL Sodium 134 L (137-145) mmol/L Glucose 133 H (74-99) mg/dL Calcium 8.1 L (8.4-10.2) mg/dL
--- NOTE | 2025-03-16 13:27 | P.PN ---
Subjective Progress Note Date: 03/16/25 Patient is a 74-year-old female with past medical history of hypertension, hyperlipidemia, hypothyroidism, multiple sclerosis for 30+ years with severe disability and wheelchair-bound with sacral decub ulcer, suprapubic catheter and chronic vertigo. Patient presents to ER status post fall from the wheelchair when it hit at the door. Patient slipped out of the wheelchair. Initially presented to [facility] and was transferred to [facility] for orthopedic surgery evaluation. Denied any loss of consciousness or in the eating her head. On admission hemoglobin was 6.9 and patient received 2 units of PRBC transfusion, hemoglobin went up to 9.[address] right knee showed comminuted fractures distal femur including the distal diaphysis angulated fracture and from a more distal transverse appearing fracture at the metaphysis of the femoral condyles. Fracture of the proximal metaphyseal tibia. Transverse fracture proximal fibular metaphysis. Fluid level within the knee joint space. EKG showed sinus tachycardia EKG 1. EKG 2 showed A-fib with RVR might be artifact. Chest x-ray showed no acute cardiopulmonary process. Laboratory data showed WBC 12.3 hemoglobin 6.9 and platelets 312 sodium 136 potassium 3.3 chloride 104 bicarb is 26 BUN 29 creatinine 0.86 and blood sugar 127 calcium 8.3 magnesium 1.8 TSH 0.4 and free T4 levels 1.63 troponin 0.017 03/15/2025 Patient is resting in the bed. Awake alert and oriented x 3. Right lower extremity pain is controlled. Patient is scheduled for surgery today afternoon. Laboratory data showed WBC 10.8 hemoglobin 9.4 and platelets 231 sodium 134 potassium 3.6 chloride 103 bicarbonate 25 BUN 16 and creatinine 0.52 calcium 8.2 iron 10 TIBC 202 and transferrin saturation 4.95 and B12 294. 03/16/2025 Patient is resting in the bed. Awake alert and oriented x 3. No complaints of chest pain or shortness of breath. No fever no chills. Right leg pain is controlled. Patient is status post ORIF right distal third femur fracture. Nonoperative management of right proximal tibia and fibula fracture. Laboratory data showed sodium 134 potassium 4.0 chloride 105 bicarb is 24 BUN 14 and creatinine 0.61 blood sugar 133 and calcium 8.1. PT OT consulted patient may need rehab transfer. Current medications reviewed. Objective - Vital Signs Vital signs: Vital Signs Temp 98.3 F 03/16/25 12:00 Pulse 98 03/16/25 12:00 Resp 16 03/16/25 12:00 BP 106/61 03/16/25 12:00 Pulse Ox 95 03/16/25 12:00 FiO2 Intake & Output 03/15/25 03/16/25 03/16/25 18:59 06:59 18:59 Intake Total 1200 780 Output Total 1200 200 Balance 0 580 Weight 69.3 kg Intake: IV 1200 Oral 780 Output: Urine 900 200 Estimated Blood Loss 300 Other: Voiding Method Indwelling Catheter Indwelling Catheter Indwelling Catheter # Bowel Movements 1 1 - Exam PHYSICAL EXAMINATION: Patient is lying in the bed comfortably, no acute distress, awake alert and oriented.. HEENT: Normocephalic. Neck is supple. Pupils reactive. Nostrils clear. Oral cavity is moist. Neck reveals no JVD, carotid bruits, or thyromegaly. CHEST EXAMINATION: Trachea is central. Symmetrical expansion. Lung ruff clear to auscultation and percussion. CARDIAC: Normal S1, S2 with no gallops. No murmurs ABDOMEN: Soft. Bowel sounds normal. No organomegaly. No abdominal bruits. Extremities: reveal no edema. No clubbing or cyanosis Neurologically awake, alert, oriented x3. Able to move all extremities while in bed. No gross focal deficits noted Skin: No rash or skin lesions. Psychiatric: Coperative. Nonsuicidal, anxious. Musculoskeletal: No joint swelling. Right lower extremity surgical site bandaged. - Labs CBC & Chem 7: 03/15/25 18:32 03/16/25 08:36 Labs: Abnormal Lab Results - Last 24 Hours (Table) 03/15/25 03/16/25 Range/Units 18:32 08:36 WBC 11.87 H (4.50-10.00) 10*3/uL RBC 3.10 L (4.10-5.20) 10*6/uL Hgb 9.0 L (12.0-15.0) g/dL Hct 27.5 L (37.2-46.3) % Immature Gran # 0.05 H (0.00-0.04) 10*3/uL Neutrophils # 10.67 H (1.80-7.70) 10*3/uL Lymphocytes # 0.36 L (0.90-5.00) 10*3/uL Eosinophils # 0.01 L (0.04-0.35) 10*3/uL Sodium 134 L (137-145) mmol/L Glucose 133 H (74-99) mg/dL Calcium 8.1 L (8.4-10.2) mg/dL Assessment and Plan Assessment: Status post mechanical fall from the wheelchair. Comminuted fractures distal femur including the distal diaphysis angulated fracture and from my more distal transverse fracture Status post ORIF right distal third femur fracture. Nonoperative management of right proximal tibia and fibula fracture on 03/15/2025. Fracture of proximal metaphyseal tibia Transverse fracture proximal fibular metaphysis. Sinus tachycardia with PACs on EKG as per cardiology. Acute blood loss anemia. Status post 2 units of transfusion. Hemoglobin 6.9 on admission went up to 9.9 Normocytic anemia. Iron deficiency Low normal vitamin B12 level Hypertension. Patient is on Norvasc, lisinopril at home. Hyperemia Hypothyroidism. Low TSH and normal free T4 level. Multiple sclerosis Moderate aortic regurgitation and mild pulmonary hypertension DVT prophylaxis. Plan: Patient will be continued on telemonitoring. Patient is on metoprolol 12.5 mg twice daily.2D echocardiogram was done. TSH dose decreased to 75 mcg daily due to low TSH level. Atorvastatin increased to 20 mg at bedtime. Continue with home medications. Norvasc and lisinopril is on hold due to low blood pressure. Monitor H&H. Patient will need iron supplementation at discharge. Patient is status post surgery. PT OT consulted and patient may need rehab transfer. Further recommendations based on the clinical course. Time with Patient: Greater than 30
[2025-03-16 14:07] VITALS: BMI 27.0
--- NOTE | 2025-03-16 14:56 | CDI ---
Documentation Clarification Form Date: 03/16/2025 01:27:23 PM From: Maggie Chen RN, CCDS Phone: [phone] Admit Date: 03/13/2025 07:36:00 PM Patient Name: Janee Banuelos Visit Number: [id number] Discharge Date: ATTENTION: The Clinical Documentation Specialists (CDI) and [facility] Coding Staff appreciate your assistance in clarifying documentation. Please respond to the clarification below the line at the bottom and electronically sign. The CDI & [facility] Coding staff will review the response and follow-up if needed. Please note: Queries are made part of the Legal Health Record. If you have any questions, please contact the author of this message via ITS. Doctor. Trip Hood A comminuted distal third femur fracture, right. And minimally displaced right proximal tibia and fibula fracture is documented in the H/P and subsequent progress notes. Additional clarification regarding the etiology of the fracture is requested. History/Risk Factors: Hypertension, Musculoskeletal Disorder, Thyroid Disorder, Multiple Sclerosis (wheelchair bound) Severe Osteopenia Clinical Indications: 74-year-old female who said she slid out of her wheelchair and sustained and injury to her knee. She was found to have a comminuted distal femur fracture and a minimally displaced proximal tibia and fibula fracture. 03/13 CT Knee RT: There is a comminuted fracture of the distal diaphyseal femur. There is anterior angulation of approximately 30 degrees of the distal fracture fragments. There is an additional fracture at the metaphysis just above the femoral condyles. 03/15 Procedure report: There was a comminuted distal third femur fracture. The patient had exceedingly poor bone quality consistent with her medical diagnosis of multiple sclerosis and being wheelchair-bound and completely nonambulatory. Severe osteopenia Treatment: Open reduction internal fixation right distal third femur fracture. Non operative management right proximal tibia and fibula fracture Non weight bearing right lower extremity, leave knee immobilizer and Ángel wrap in place for an additional 24 hrs ASA 81 MG PO Daily Cefazolin 2,000 MG IVPB X 2 Doses postop Physical therapy, attempt to mobilize out of bed to chair Offload pressure points Please clarify the etiology of the fracture, if known: [ ] Right femur fracture due to traumatic fall with underlying age-related osteoporosis contributing to the fracture but not the cause [ ] Right femur fracture due to age-related osteoporosis (fracture not a result of traumatic fall) [ ] Other (please specify): [ ] Unable to determine (Template Last Revised: January 2021) MTDD
[2025-03-16 21:47] LABS: Glucose,Whole Blood 141 mg/dL (70-110)
--- NOTE | 2025-03-16 21:55 | P.PN ---
Progress Note - Text Right femur fracture is due to traumatic fall with underlying age-related osteoporosis contributing to the fracture but not the cause.
--- NOTE | 2025-03-16 22:48 | CT ---
EXAMINATION TYPE: CT brain wo con DATE OF EXAM: 03/16/2025 10:08 PM COMPARISON: None. CLINICAL INDICATION: Female, 74 years old with history of vision changes, neuro deficit, visual distu rbances, ORIF to left leg today. TECHNIQUE: CT of the brain is performed utilizing 3 mm thick sections through the posterior fossa and 3 mm thick sections through the remaining calvarium. Study is performed within 24 hours of arrival to the hospital. Contrast used: mL of , (none if empty) CT DLP: 1039.4 mGycm, Automated exposure control for dose reduction was used. FINDINGS: No abnormal hyperdensity is present to suggest an acute intracranial hemorrhage. No mass lesion is evident. No acute infarcts are evident. Periventricular white matter hypodensity is present, likely on the bas is of chronic white matter ischemic changes. Ventricles and sulci are mildly prominent for the patient age. Paranasal sinuses within the [id number] are clear. Fluid is within the bilateral mastoid air cells , more so on the right. Consider mastoiditis. IMPRESSION: 1. No acute intracranial process. Follow up MRI can be performed as clinically indicated. 2. Chronic appearing periventricular white matter ischemic changes with mild atrophy 3. Consider bilateral mastoiditis [facility], Workstation: [facility], 03/16/2025 10:46 PM
[2025-03-17 08:18] LABS: African American GFR (CKD) >90 (>60 ml/min/1.73 sqM); Anion Gap 3 mmol/L; Blood Urea Nitrogen 13 mg/dL (7-17); Calcium 8.6 mg/dL (8.4-10.2); Carbon Dioxide 28 mmol/L (22-30); Chloride 105 mmol/L (98-107); Glucose 116 mg/dL (74-99); Non-African American GFR(CKD) >90 (>60 ml/min/1.73 sqM); Potassium 4.1 mmol/L (3.5-5.1); Sodium 136 mmol/L (137-145)
[2025-03-17] MEDS ORDERED: diphenhydrAMINE 25 MG CAP PO PRN (08:42)
--- NOTE | 2025-03-17 09:19 | P.PN ---
Subjective Patient is doing relatively well this morning. She states that she had some issues with pain and feeling unwell overnight but is much better this morning. She has multiple concerns about bending her knee and pressure sores. She says she is having pain in her left ankle and foot. Objective - Vital Signs Vital signs: Vital Signs Temp 98.3 F 03/16/25 20:00 Pulse 103 H 03/17/25 04:00 Resp 16 03/17/25 04:00 BP 142/78 03/17/25 04:00 Pulse Ox 95 03/17/25 04:00 FiO2 Intake & Output 03/16/25 03/17/25 03/17/25 18:59 06:59 18:59 Intake Total 1800 540 Output Total 750 425 Balance 1050 115 Weight 69.3 kg 69.1 kg Intake: Oral 1800 540 Output: Urine 750 425 Other: Voiding Method Indwelling Catheter Indwelling Catheter # Bowel Movements 1 - Exam Patient is resting comfortably in bed. She is alert and able to answer questions. A focused exam of the right lower extremity was conducted. The knee immobilizer was opened and the Ángel wrap removed. The dressing over the lateral aspect of her thigh is intact with no drainage or strikethrough. She has mild swelling throughout the thigh and calf. There is resolving ecchymosis throughout the leg. Her foot is warm and well-perfused with brisk capillary refill. She can actively plantarflex and dorsiflex her ankle. - Labs CBC & Chem 7: 03/15/25 18:32 03/17/25 07:35 Labs: Abnormal Lab Results - Last 24 Hours (Table) 03/16/25 03/16/25 03/17/25 Range/Units 08:36 21:46 07:35 Sodium 134 L 136 L (137-145) mmol/L Glucose 133 H 116 H (74-99) mg/dL POC Glucose (mg/dL) 141 H (70-110) mg/dL Calcium 8.1 L (8.4-10.2) mg/dL Assessment and Plan Assessment: Postoperative day #2 status post open reduction internal fixation right distal femur fracture Nonoperative management right proximal tibia and fibula fracture Multiple sclerosis Nonambulatory at baseline Plan: Continue treatment as outlined yesterday. The patient has remained strictly nonweightbearing on her right leg. She is in a knee immobilizer until a hinged knee brace is delivered. Appreciate internal medicine assistance with perioperative medical management. Discharge planning is in progress.
[2025-03-17 11:29] VITALS: RESP 16
--- NOTE | 2025-03-17 13:43 | P.PN ---
Subjective Progress Note Date: 03/17/25 History of present illness: This is a 74-year-old female patient of Dr. Spears with past medical history of hypertension, hyperlipidemia, hypothyroidism, multiple sclerosis for 30+ years with severe debility, wheelchair-bound with sacral decubitus ulcer, suprapubic catheter, chronic vertigo. We have been asked to evaluate the patient for atrial fibrillation with RVR and for preop clearance. Patient gives history that she had slipped out of her wheelchair. She denies any loss of consciousness and did not hit her head. Patient was initially seen at [facility] and transferred to [facility]. She is scheduled for surgery this afternoon. Patient has been found to have fracture of the distal femur, proximal tibia and fibula. Blood pressure 117/76, heart rate 105, pulse ox 96% on room air. Patient is status post transfusion of 2 units of packed RBCs for initial hemoglobin 6.9. -EKG: Sinus tachycardia 122 bpm, EKG #2 artifact. Telemetry reveals sinus tachy cardia with PACs -Chest x-ray: No acute process. -CT right knee: Comminuted fractures distal femur. Fracture of the proximal metaphyseal tibia. Transverse fracture proximal fibular metaphysis. Fluid in the knee joint space. -Laboratory studies: WBC initially 12.3 now 10.1. Initial hemoglobin 6.9 and now 9.9. Sodium 136, potassium 3.3, BUN 29 creatinine 0.86. Troponin 0.017. TSH 0.4. Normal free T4 of 1.63. -Home cardiac medications: Amlodipine 5 mg daily, aspirin 81 mg daily, lisinopril 40 mg daily, simvastatin 5 mg at bedtime, patient is also on levothyroxine. -Echocardiogram performed on this hospitalization reveals normal LV size and systolic function. Mild mitral annular calcification and aortic valve sclerosis without restriction. Moderate aortic regurgitation and mild pulmonary hypertension. No pericardial effusion. -Event monitor performed 09/26 - 10/03/24 revealed sinus rhythm with maximum heart rate 157. No atrial fibrillation. 03/15 Patient seen and examined. Telemetry reviewed and patient is in sinus tach with PACs running in the low 100s. Patient is on a beta-pricilla 12.5 mg twice daily which will be increased. Patient denies chest pain or shortness of breath. Patient's orthopedic surgery was postponed until today. 03/16 Patient seen and examined. Blood pressure 115/74, heart rate [id number], pulse ox 94% on room air. Yesterday, patient underwent ORIF right distal femur fracture. 03/17 Patient seen and examined. Heart rate is in the 70s, telemetry is a sinus rhythm with PACs. Patient has been maintained on metoprolol tartrate 25 mg twice daily which we will transition to succinate. Physical examination: Gen: This is 74-year-old female in no acute distress VS: reviewed HEENT: Head is atraumatic, normocephalic. Pupils equal, round. Sclerae is an icteric. NECK: Supple. No JVD. LUNGS: Clear to auscultation. No wheezes or rhonchi. No intercostal retractions. HEART: Regular rate and rhythm. No murmur. ABDOMEN: Soft No tenderness. EXTREMITIES: No pedal edema. No calf tenderness. NEUROLOGICAL: Patient is awake, alert and oriented x3. Assessment: Sinus tachycardia with PACs Mechanical fall with resulting distal femur fracture, proximal tibia and fibula fractures status post ORIF 03/15 Acute blood loss anemia status posttransfusion of 2 units of packed RBCs Hypertension Hyperlipidemia Hypothyroidism MS Moderate aortic regurgitation Mild pulmonary hypertension moderate AR, mild pulmonary hypertension. Cleared for surgery Plan: EKGs and telemetry have been reviewed with no episodes of clear atrial fibrillation Continue patient's home cardiac medications Increase atorvastatin to 20 mg Decrease levothyroxine to 75 mcg daily Transition metoprolol tartrate to metoprolol succinate 25 mg daily starting tomorrow Patient is cleared for cardiology for discharge Cardiology will sign off this case and follow on an as-needed basis. Please reconsult for any new concerns. Patient may follow-up in the office in one to 2 weeks. Nurse practitioner note has been reviewed, I agree with documented findings and plan of care. Patient was seen and examined. Objective - Vital Signs Vital signs: Vital Signs Temp 98.3 F 03/16/25 20:00 Pulse 103 H 03/17/25 04:00 Resp 16 03/17/25 04:00 BP 142/78 03/17/25 04:00 Pulse Ox 95 03/17/25 04:00 FiO2 Intake & Output 03/16/25 03/17/25 03/17/25 18:59 06:59 18:59 Intake Total 1800 540 Output Total 750 425 Balance 1050 115 Weight 69.3 kg 69.1 kg Intake: Oral 1800 540 Output: Urine 750 425 Other: Voiding Method Indwelling Catheter Indwelling Catheter # Bowel Movements 1 - Labs CBC & Chem 7: 03/15/25 18:32 03/17/25 07:35 Labs: Abnormal Lab Results - Last 24 Hours (Table) 03/16/25 03/17/25 Range/Units 21:46 07:35 Sodium 136 L (137-145) mmol/L Glucose 116 H (74-99) mg/dL POC Glucose (mg/dL) 141 H (70-110) mg/dL
--- NOTE | 2025-03-17 15:20 | P.PN ---
Progress Note - Text Progress Note Date: 03/17/25 Progress at 03/17/2025 1515: Patient was examined at bedside. Knee immobilizer was taken down. Patient has diffuse swelling in their right thigh, calf, ankle, and foot. There is approximately a 30 cm dressing over the lateral border of the right thigh covering the surgical incision. Patient has pain to light palpation of the right calf. Patient has a positive Homans' sign. Patient has a 1+ dorsalis pedis pulse. Patient's capillary refill is 3 seconds. Discussed with patient, and nursing staff. Patient states they had multiple ultrasounds of the right lower extremity done last year for concerns for DVT. Ordering a venous Doppler ultrasound right lower extremity to rule out DVT. Orthopedics does not recommend discharge today.
--- NOTE | 2025-03-17 16:04 | US ---
EXAMINATION TYPE: US venous doppler duplex LE RT DATE OF EXAM: 03/17/2025 3:49 PM COMPARISON: NONE CLINICAL INDICATION: Female, 74 years old with history of Pain. Rule out DVT.; Right femur and tib/f ib fracture; RLE Pain , Pain TECHNIQUE: The lower extremity deep venous system is examined utilizing real time linear array sonog alli with graded compression, color doppler sonography, and spectral doppler. SIDE PERFORMED: Bilateral FINDINGS: VESSELS IMAGED: Common Femoral Vein Deep Femoral Vein Greater Saphenous Vein * Femoral Vein Popliteal Vein Small Saphenous Vein * Proximal Calf Veins (* superficial vessels) Right Leg: Visualized segments appear WNL, unable to insonate popliteal veins. Negative for DVT, Co shani Doppler imaging shows patency of the vessels. Spectral waveforms are within normal limits. IMPRESSION: No visualized deep venous thrombosis of the right lower extremity. Unable to visualize the popliteal vein due to patient inability to move knee. [facility], , 03/17/2025 4:01 PM
[2025-03-17 17:34] LABS: Basophils # (A) 0.05 10*3/uL (0.00-0.10); Basophils % (A) 0.5 %; Eosinophils # (A) 0.12 10*3/uL (0.04-0.35); Eosinophils % (A) 1.3 %; HGB 7.6 g/dL (12.0-15.0); Lymphocytes # (A) 1.14 10*3/uL (0.90-5.00); Lymphocytes % (A) 12.2 %; MCH 28.1 pg (27.0-32.0); MCHC 31.7 g/dL (32.0-37.0); MCV 88.9 fL (80.0-97.0); Monocytes # (A) 1.32 10*3/uL (0.20-1.00); Monocytes % (A) 14.2 %; Neutrophils # (A) 6.66 10*3/uL (1.80-7.70); Neutrophils % (A) 71.5 %; Platelet Count 262 10*3/uL (140-440); RDW 18.2 % (11.5-14.5); WBC 9.32 10*3/uL (4.50-10.00)
--- NOTE | 2025-03-18 08:35 | P.PN ---
Subjective Progress Note Date: 03/18/25 Patient is doing relatively well. She continues to have pain in her right leg and knee as expected from surgery. She denies chest pain or shortness of breath. Objective - Vital Signs Vital signs: Vital Signs Temp 98.7 F 03/17/25 20:00 Pulse 110 H 03/18/25 04:00 Resp 16 03/18/25 04:00 BP 154/84 03/18/25 04:00 Pulse Ox 95 03/18/25 04:00 FiO2 Intake & Output 03/17/25 03/18/25 03/18/25 18:59 06:59 18:59 Intake Total 1260 540 Output Total 350 500 Balance 910 40 Weight 70.5 kg Intake: Oral 1260 540 Output: Urine 350 500 Other: Voiding Method Indwelling Catheter Indwelling Catheter - Exam The patient is resting comfortably in bed. She is alert and able to answer questions. A focused exam of the right lower extremity was conducted. The dressing over the lateral aspect of her thigh is intact with no drainage or stri kethrough. There is moderate swelling consistent with surgery. The hinged knee brace is in place. She can actively plantarflex and dorsiflex her ankle and her toes. - Labs CBC & Chem 7: 03/17/25 17:00 03/17/25 07:35 Labs: Abnormal Lab Results - Last 24 Hours (Table) 03/17/25 Range/Units 17:00 RBC 2.70 L (4.10-5.20) 10*6/uL Hgb 7.6 L (12.0-15.0) g/dL Hct 24.0 L (37.2-46.3) % MCHC 31.7 L (32.0-37.0) g/dL Monocytes # 1.32 H (0.20-1.00) 10*3/uL Assessment and Plan Assessment: Postoperative day #3 status post open reduction internal fixation distal third femur fracture, nonoperative management proximal tib-fib fracture Multiple sclerosis Wheelchair-bound and nonambulatory at baseline Multiple medical problems Plan: The patient continues to slowly recover following surgery. Her hinged knee brace was delivered yesterday. Continue strict nonweightbearing on her operative extremity. Brace on at all times except for hygiene and to check for pressure sores. Appreciate internal medicine's assistance with perioperative medical management. The patient not yet ready for discharge. The family would like her to discharge to a different facility than where she is at. This planning is in progress. Will defer to internal medicine if the patient can come off of telemetry and be transferred to the Ortho Floor.
[2025-03-18] MEDS: METOPROLOL SUCCINATE (ER) 25 MG TAB.ER.24H PO SCH (10:20)
[2025-03-18] MEDS: lisinopriL 20 MG TAB PO SCH (10:20)
[2025-03-18] MEDS: HYDROcodone/APAP 10-325MG 1 EACH TAB PO PRN (14:12)
--- NOTE | 2025-03-18 14:21 | P.DS ---
Providers Date of admission: 03/13/25 19:36 Attending physician: Trip Hood Consults: 03/13/25 20:30 Consult Physician Routine Consulting Provider: Marie Garza Consult Reason/Comments: Preop clearance Do you want consulting provider notified?: Yes 03/13/25 21:21 Consult Physician Urgent Consulting Provider: Kristofer Alicea Consult Reason/Comments: NOS afib rvr, preop clearance Do you want consulting provider notified?: Yes, Notify in am Primary care physician: Ishmael Melyssa [facility] Hospital Course: The patient is a 74 year old female who was transferred here from [facility] after she fell out of her wheel chair sustaining a distal femur fracture and proximal tibia and fibula fractures. She was admitted to Orthopaedics with consults to IM and Cardiology. Despite her low functional demand, the decision was made to proceed with surgery on her femur to facilitate transfers and make her more comfortable due to the displacement of her femur fracture. The tibia and fibula fractures were treated non-operatively. After an uneventful surgery she was transferred back to [address] [place] [address] for cardiac monitoring. She was kept NWB on her right leg and a brace was delivered. Her dressing was checked and found to be intact. She was managed medically by IM and Cardiology. She improved on 03/18 and was medically cleared for discharge by IM and cardiology. The family was agreeable to this and she was discharged on 03/18. Patient Condition at Discharge: Fair Plan - Discharge Summary Discharge Rx Participant: Yes New Discharge Prescriptions: New HYDROcodone/APAP 5-325MG [[place] 5] 1 - 2 each PO Q6HR PRN 3 Days #24 tab PRN Reason: Pain amLODIPine [Norvasc] 10 mg PO DAILY@0800 tab Sennosides-Docusate Sodium [Senokot-S] 2 each PO HS tab Cyanocobalamin [Vitamin B-12] 1,000 mcg PO DAILY tab Levothyroxine Sodium 75 mcg PO DAILY #30 cap Aspirin 81 mg PO BID tab Pantoprazole [Protonix] 40 mg PO AC-BRKFST tab Acetaminophen Tab [Tylenol] 650 mg PO Q6HR PRN tab PRN Reason: Fever and/ or Pain 1-3 Metoprolol Succinate [[place] Sprinkle] 25 mg PO DAILY #30 cap Atorvastatin [Lipitor] 20 mg PO HS #30 tablet Continue Acetaminophen [Tylenol] 650 mg PO Q4H PRN PRN Reason: MILD PAIN guaiFENesin 400 mg PO Q4H PRN PRN Reason: COUGH CONGESTION Muscle Rub External Cream 10-15% 1 applic TOPICAL Q8H PRN PRN Reason: Pain Methylprednisolone Powder 1,000 mg IV DAILY PRN PRN Reason: MS FLARE UP Lidocaine 4% Patch 1 patch TOPICAL DAILY PRN PRN Reason: RIGHT HIP PAIN Menthol [[place]] 7.5 mg MM Q3H PRN PRN Reason: THROAT IRRITATION/COUGH Ergocalciferol (Vitamin D2) [Drisdol (GEQ) 1,250 MCG (50,000 IU)] 1,250 mcg PO TH@0800 Cetirizine HCl [Zyrtec] 10 mg PO HS@1999 Baclofen [Lioresal] 20 mg PO HS@1999 Dextromethorphan Hbr Syrup 10 ml PO Q4H PRN PRN Reason: Cough Sodium Chloride [Saline Nasal Mist] 2 spray EA NOSTRIL Q1H PRN PRN Reason: DRYNESS Ondansetron [Zofran] 4 mg PO Q6H PRN PRN Reason: Nausea And Vomiting polyethylene glycoL 3350 [Miralax] 17 gm PO DAILY PRN PRN Reason: Constipation Loperamide [Imodium] 2 mg PO Q6H PRN PRN Reason: Loose Stool Hyoscyamine Sulfate [Levsin] 0.125 mg PO Q4H PRN PRN Reason: Muscle Spasm Ibuprofen [Motrin] 800 mg PO Q6H PRN PRN Reason: MILD PAIN HYDROcodone/APAP 10-325MG [[place] 10-325] 1 tab PO Q12H PRN PRN Reason: Pain diphenhydrAMINE HCL [Benadryl] 25 mg PO HS PRN PRN Reason: ALLERGIES Meclizine [Antivert] 25 mg PO Q8H PRN PRN Reason: Vertigo Baclofen 10 mg PO BID PRN PRN Reason: Pain Methenamine Hippurate 1 gm PO BID@0800,1999 Active Liquid Protein 30 ml PO BID@0800,1999 Ascorbic Acid [Vitamin C] 500 mg PO BID@0800,1999 lisinopriL [Zestril] 40 mg PO DAILY@0800 HYDROcodone/APAP 10-325MG [[place] 10-325] 1 tab PO HS@1999 Fluticasone Nasal [place] [Flonase Nasal [place]] 2 spray EA NOSTRIL DAILY@0800 Teriflunomide [Aubagio] 14 mg PO DAILY@0800 Baclofen 10 mg PO DAILY@0800 Discontinued amLODIPine [Norvasc] 5 mg PO DAILY@0800 Levothyroxine Sodium [Synthroid] 100 mcg PO DAILY@0500 Aspirin EC [Ecotrin Low Dose] 81 mg PO DAILY@0800 Simvastatin [Zocor] 5 mg PO HS@1999 Discharge Medication List Acetaminophen [Tylenol] 650 mg PO Q4H PRN 03/13/25 [History] Active Liquid Protein 30 ml PO BID@08,199903/13/25 [History] Ascorbic Acid [Vitamin C] 500 mg PO BID@799,199903/13/25 [History] Baclofen 10 mg PO BID PRN 03/13/25 [History] Baclofen 10 mg PO DAILY@0800 03/13/25 [History] Baclofen [Lioresal] 20 mg PO HS@199903/13/25 [History] Cetirizine HCl [Zyrtec] 10 mg PO HS@199903/13/25 [History] Dextromethorphan Hbr Syrup 10 ml PO Q4H PRN 03/13/25 [History] Ergocalciferol (Vitamin D2) [Drisdol (GEQ) 1,250 MCG (50,000 IU)] 1,250 mcg PO TH@0803/13/25 [History] Fluticasone Nasal [place] [Flonase Nasal [place]] 2 spray EA NOSTRIL DAILY@79903/13/25 [History] HYDROcodone/APAP 10-325MG [[place] 10-325] 1 tab PO HS@199903/13/25 [History] HYDROcodone/APAP 10-325MG [[place] 10-325] 1 tab PO Q12H PRN 03/13/25 [History] Hyoscyamine Sulfate [Levsin] 0.125 mg PO Q4H PRN 03/13/25 [History] Ibuprofen [Motrin] 800 mg PO Q6H PRN 03/13/25 [History] Lidocaine 4% Patch 1 patch TOPICAL DAILY PRN 03/13/25 [History] Loperamide [Imodium] 2 mg PO Q6H PRN 03/13/25 [History] Meclizine [Antivert] 25 mg PO Q8H PRN 03/13/25 [History] Menthol [[place]] 7.5 mg MM Q3H PRN 03/13/25 [History] Methenamine Hippurate 1 gm PO BID@0800,199903/13/25 [History] Methylprednisolone Powder 1,000 mg IV DAILY PRN 03/13/25 [History] Muscle Rub External Cream 10-15% 1 applic TOPICAL Q8H PRN 03/13/25 [History] Ondansetron [Zofran] 4 mg PO Q6H PRN 03/13/25 [History] Sodium Chloride [Saline Nasal Mist] 2 spray EA NOSTRIL Q1H PRN 03/13/25 [History] Teriflunomide [Aubagio] 14 mg PO DAILY@0800 03/13/25 [History] diphenhydrAMINE HCL [Benadryl] 25 mg PO HS PRN 03/13/25 [History] guaiFENesin 400 mg PO Q4H PRN 03/13/25 [History] lisinopriL [Zestril] 40 mg PO DAILY@0800 03/13/25 [History] polyethylene glycoL 3350 [Miralax] 17 gm PO DAILY PRN 03/13/25 [History] Acetaminophen Tab [Tylenol] 650 mg PO Q6HR PRN tab 03/17/25 [Rx] Aspirin 81 mg PO BID tab 03/17/25 [Rx] Atorvastatin [Lipitor] 20 mg PO HS #30 tablet 03/17/25 [Rx] Cyanocobalamin [Vitamin B-12] 1,000 mcg PO DAILY tab 03/17/25 [Rx] HYDROcodone/APAP 5-325MG [[place] 5] 1 - 2 each PO Q6HR PRN 3 Days #24 tab 03/17/25 [Rx] Levothyroxine Sodium 75 mcg PO DAILY #30 cap 03/17/25 [Rx] Metoprolol Succinate [[place] Sprinkle] 25 mg PO DAILY #30 cap 03/17/25 [Rx] Pantoprazole [Protonix] 40 mg PO AC-BRKFST tab 03/17/25 [Rx] Sennosides-Docusate Sodium [Senokot-S] 2 each PO HS tab 03/17/25 [Rx] amLODIPine [Norvasc] 10 mg PO DAILY@0800 tab 03/17/25 [Rx] Follow up Appointment(s)/Referral(s): Adam Spears DO [STAFF PHYSICIAN] - 2 Weeks Ishmael Ragsdale MD [Primary Care Provider] - 1-2 days Trip Hood MD [Medical Doctor] - 2 Weeks Activity/Diet/Wound Care/Special Instructions: 1. Nonweightbearing. Leave hinged knee brace on at all times except for hygiene and to check for pressure sores. Check multiple times per day for pressure sores around your knee brace. 2. Leave surgical dressing in place. If your dressing becomes saturated with blood, there is drainage, or the dressing becomes loose please contact the office. 3. It is okay to shower with your surgical dressing, but do not submerge in water (no hot tubs, bath's, swimming etc.) 4. Take your blood clot prevention medication as prescribed (aspirin, Eliquis, Xarelto, and Plavix are commonly prescribed medications for blood clot prevention) 5. While taking [place] or Percocet for pain take a stool softener (Ex: Colace) and drink lots of water. 6. Keep all follow-up appointments as scheduled. You will usually be seen in 1-2 weeks following surgery. 7. Please contact the office with any questions or concerns [phone] Discharge Disposition: TRANSFER TO SNF/ECF
--- NOTE | 2025-03-18 14:23 | P.PN ---
Subjective Progress Note Date: 03/17/25 65-year-old female with a past medical history of coronary artery disease status post cardiac catheterization in 2019 with critical stenosis of the distal left main declining surgery at that time, hypertrophic cardiomyopathy, hypertension, ADD/ADHD, memory impairment, history of cerebral aneurysm with coiling, anxiety/bipolar and smoking and marijuana use was found down unconscious by her daughter. Exact duration is unknown but she thinks maybe 3 to 4 days. Was found down with her own feces and had difficulty communicating. Patient states that she was also having shortness of breath. Complains of cough without any sputum production. Patient states that she is getting headache due to continuou s cough. Patient is somewhat poor historian. Denied any complaints of chest pain. No leg swelling. Denied any fever or chills. Denied any recent illnesses. On admission blood pressure 118/87 pulse 106 respiration 18 and pulse ox 97% on room air. Laboratory data showed WBC 26.3 hemoglobin 18.7 and platelets 163 sodium 138 potassium 3.4 chloride 97 bicarb is 25 BUN 36 and creatinine 1.69 and blood sugar 110 lactic acid 5.0 calcium 11.8 AST 120 ALT 55 alk phos 73 CK2 533 and troponin 4.8, 3.5 and 2.9 CRP 0.7 and proBNP 9690 TSH 0.369 and free T41.78 Tmax one 1.1 UDS positive for opiates, amphetamines and marijuana, urinalysis showed cloudy with 3+ protein trace glucose large blood and leukocyte esterase negative. Chest x-ray showed cardiac severity is mildly enlarged, exaggerated by technique and body habitus. Prominent interstitial markings throughout both lungs. Exacerbation lower lung volumes. No focal consolidation is seen. CT head showed no acute hemorrhage, hydrocephalus or mass effect. Severe right mastoid effusion. Ultrasound abdomen showed no hydronephrosis. Couple of small renal cortical cysts measuring up to 1.3 cm. Incidental hepatic steatosis. Objective - Vital Signs Vital signs: Vital Signs Temp 98.9 F 03/17/25 11:27 Pulse 103 H 03/17/25 11:27 Resp 16 03/17/25 11:27 BP 127/78 03/17/25 11:27 Pulse Ox 97 03/17/25 11:27 FiO2 Intake & Output 03/16/25 03/17/25 03/17/25 18:59 06:59 18:59 Intake Total 1800 540 480 Output Total 750 425 Balance 1050 115 480 Weight 69.3 kg 69.1 kg Intake: Oral 1800 540 480 Output: Urine 750 425 Other: Voiding Method Indwelling Catheter Indwelling Catheter Indwelling Catheter # Bowel Movements 1 - Exam -GENERAL: The patient is a awake and alert. Trying to communicate. HEENT: Pupils are round and equally reacting to light. EOMI. No scleral icterus. No conjunctival pallor. Normocephalic, atraumatic. No pharyngeal erythema. No thyromegaly. CARDIOVASCULAR: S1 and S2 present. No murmurs, rubs, or gallops. PULMONARY: Chest is clear to auscultation, no wheezing , no crackles. ABDOMEN: Soft, nontender, nondistended, normoactive bowel sounds. No palpable organomegaly. MUSCULOSKELETAL: No joint swelling or deformity. EXTREMITIES: No cyanosis, clubbing, or pedal edema. NEUROLOGICAL: Gross neurological examination did not reveal any focal deficits. SKIN: No rashes. no petechiae. - Labs CBC & Chem 7: 03/17/25 17:00 03/17/25 07:35 Labs: Abnormal Lab Results - Last 24 Hours (Table) 03/16/25 03/17/25 Range/Units 21:46 07:35 Sodium 136 L (137-145) mmol/L Glucose 116 H (74-99) mg/dL POC Glucose (mg/dL) 141 H (70-110) mg/dL Assessment and Plan Assessment: Acute left axillary venous thrombosis. Patient is on heparin drip. Fluid overload with diastolic CHF Acute UTI secondary to E. coli and Mahi Left lower lobe infiltrate suspicious for hospital-acquired pneumonia on 03/03 Acute pulmonary edema on 02/28 Septic shock Acute respiratory failure with altered mental status, NSTEMI and significant left main disease and RCA. Patient is intubated and placed on mechanical ventilator on 02/24/2025. Extubated on 02/27/2025. NSTEMI status post emergent cardiac catheterization on 02/24/2025 with stent placement to left main into LAD, also status post PCI to mid RCA with 2 overlapping stents after dilatation with balloon (03/03) Acute syncopal episode-patient was found down at home due to cardiac etiology. Acute non-ST elevated [place] with troponin 4.8, 3.5 and 2.9. Status post cardiac catheterization on 02/21/2025. Showed stenosis involving left main disease and RCA. Was planning for CABG and was seen by CT surgery. Coronary artery disease history of cardiac catheterization in 2019 showed left main critical disease, patient refused surgery at that time. Acute blood loss anemia due to extensive bruising over the inner thigh and hematoma Acute sinusitis with air-fluid level per CT on 03/06 Leukocytosis. Improving. Elevated proBNP.. History of Hypertrophic Cardiomyopathy Moderate MR and Moderate Pulmonary Hypertension Lactic Acidosis Sepsis with Possible Pneumonia. Patient Has Leukocytosis and Febrile on Admission Acute Kidney Injury Prerenal and Possible ATN Non-Anion Gap Metabolic Acidosis Altered Mental Status Possible Metabolic Encephalopathy Acute rhabdomyolysis with CPK level 2533 on admission Marijuana use disorder ADD/ADHD Prior history of seizures, was on Keppra but currently not taking any medication. Ongoing nicotine use COPD Plan: Antibiotics was changed to ceftriaxone for UTI. Also on Eraxis. Continue with heparin drip and consulted hematology team for her acute DVT Patient is on IV Lasix Check MRSA screen of the nasal area was reviewed and is negative Continue with aspirin and Plavix Continue with other cardiac medications within metoprolol Cardiology team consult following closely ID, pulmonary/renal team is following. Patient was started back on Effexor on 03/14/2025 Swallow evaluation again today.. Patient pulled out NG tube last night. Possible PEG tube placement was discussed with the patient if continues to fail swallow evaluation. Labs and medication were reviewed. Monitor labs and vitals. DVT and GI prophylaxis. DVT prophylaxis: Dual antiplatelet therapy. On heparin drip for DVT. GI Prophylaxis: Protonix Prognosis is guarded
--- NOTE | 2025-03-18 14:26 | P.PN ---
Subjective Progress Note Date: 03/18/25 65-year-old female with a past medical history of coronary artery disease status post cardiac catheterization in 2019 with critical stenosis of the distal left main declining surgery at that time, hypertrophic cardiomyopathy, hypertension, ADD/ADHD, memory impairment, history of cerebral aneurysm with coiling, anxiety/bipolar and smoking and marijuana use was found down unconscious by her daughter. Exact duration is unknown but she thinks maybe 3 to 4 days. Was found down with her own feces and had difficulty communicating. Patient states that she was also having shortness of breath. Complains of cough without any sputum production. Patient states that she is getting headache due to continuou s cough. Patient is somewhat poor historian. Denied any complaints of chest pain. No leg swelling. Denied any fever or chills. Denied any recent illnesses. On admission blood pressure 118/87 pulse 106 respiration 18 and pulse ox 97% on room air. Laboratory data showed WBC 26.3 hemoglobin 18.7 and platelets 163 sodium 138 potassium 3.4 chloride 97 bicarb is 25 BUN 36 and creatinine 1.69 and blood sugar 110 lactic acid 5.0 calcium 11.8 AST 120 ALT 55 alk phos 73 CK2 533 and troponin 4.8, 3.5 and 2.9 CRP 0.7 and proBNP 9690 TSH 0.369 and free T41.78 Tmax one 1.1 UDS positive for opiates, amphetamines and marijuana, urinalysis showed cloudy with 3+ protein trace glucose large blood and leukocyte esterase negative. Chest x-ray showed cardiac severity is mildly enlarged, exaggerated by technique and body habitus. Prominent interstitial markings throughout both lungs. Exacerbation lower lung volumes. No focal consolidation is seen. CT head showed no acute hemorrhage, hydrocephalus or mass effect. Severe right mastoid effusion. Ultrasound abdomen showed no hydronephrosis. Couple of small renal cortical cysts measuring up to 1.3 cm. Incidental hepatic steatosis. 03/18/2025 Patient is seen and evaluated sitting up in bed; has been cleared by orthopedic surgery to be discharged to skilled Vital signs are reviewed and remained stable Blood work is reviewed and remained stable -Patient stable to discharge to skilled rehab Objective - Vital Signs Vital signs: Vital Signs Temp 98.7 F 03/17/25 20:00 Pulse 110 H 03/18/25 04:00 Resp 16 03/18/25 04:00 BP 154/84 03/18/25 04:00 Pulse Ox 95 05/10/25 04:00 FiO2 Intake & Output 03/17/25 03/18/25 03/18/25 18:59 06:59 18:59 Intake Total 1260 540 Output Total 350 500 Balance 910 40 Weight 70.5 kg Intake: Oral 1260 540 Output: Urine 350 500 Other: Voiding Method Indwelling Catheter Indwelling Catheter - Exam -GENERAL: The patient is a awake and alert. Trying to communicate. HEENT: Pupils are round and equally reacting to light. EOMI. No scleral icterus. No conjunctival pallor. Normocephalic, atraumatic. No pharyngeal erythema. No thyromegaly. CARDIOVASCULAR: S1 and S2 present. No murmurs, rubs, or gallops. PULMONARY: Chest is clear to auscultation, no wheezing , no crackles. ABDOMEN: Soft, nontender, nondistended, normoactive bowel sounds. No palpable organomegaly. MUSCULOSKELETAL: No joint swelling or deformity. EXTREMITIES: No cyanosis, clubbing, or pedal edema. NEUROLOGICAL: Gross neurological examination did not reveal any focal deficits. SKIN: No rashes. no petechiae. - Labs CBC & Chem 7: 03/17/25 17:00 03/17/25 07:35 Labs: Abnormal Lab Results - Last 24 Hours (Table) 03/17/25 Range/Units 17:00 RBC 2.70 L (4.10-5.20) 10*6/uL Hgb 7.6 L (12.0-15.0) g/dL Hct 24.0 L (37.2-46.3) % MCHC 31.7 L (32.0-37.0) g/dL Monocytes # 1.32 H (0.20-1.00) 10*3/uL Assessment and Plan Assessment: Acute left axillary venous thrombosis. Patient is on heparin drip. Fluid overload with diastolic CHF Acute UTI secondary to E. coli and Mahi Left lower lobe infiltrate suspicious for hospital-acquired pneumonia on 03/03 Acute pulmonary edema on 02/28 Septic shock Acute respiratory failure with altered mental status, NSTEMI and significant left main disease and RCA. Patient is intubated and placed on mechanical ventilator on 02/24/2025. Extubated on 02/27/2025. NSTEMI status post emergent cardiac catheterization on 02/24/2025 with stent placement to left main into LAD, also status post PCI to mid RCA with 2 overlapping stents after dilatation with balloon (03/03) Acute syncopal episode-patient was found down at home due to cardiac etiology. Acute non-ST elevated [place] with troponin 4.8, 3.5 and 2.9. Status post cardiac catheterization on 02/21/2025. Showed stenosis involving left main disease and RCA. Was planning for CABG and was seen by CT surgery. Coronary artery disease history of cardiac catheterization in 2019 showed left main critical disease, patient refused surgery at that time. Acute blood loss anemia due to extensive bruising over the inner thigh and hematoma Acute sinusitis with air-fluid level per CT on 03/06 Leukocytosis. Improving. Elevated proBNP.. History of Hypertrophic Cardiomyopathy Moderate MR and Moderate Pulmonary Hypertension Lactic Acidosis Sepsis with Possible Pneumonia. Patient Has Leukocytosis and Febrile on Admission Acute Kidney Injury Prerenal and Possible ATN Non-Anion Gap Metabolic Acidosis Altered Mental Status Possible Metabolic Encephalopathy Acute rhabdomyolysis with CPK level 2533 on admission Marijuana use disorder ADD/ADHD Prior history of seizures, was on Keppra but currently not taking any medication. Ongoing nicotine use COPD Plan: Antibiotics was changed to ceftriaxone for UTI. Also on Eraxis. Continue with heparin drip and consulted hematology team for her acute DVT Patient is on IV Lasix Check MRSA screen of the nasal area was reviewed and is negative Continue with aspirin and Plavix Continue with other cardiac medications within metoprolol Cardiology team consult following closely ID, pulmonary/renal team is following. Patient was started back on Effexor on 03/14/2025 Swallow evaluation again today.. Patient pulled out NG tube last night. Possible PEG tube placement was discussed with the patient if continues to fail swallow evaluation. Labs and medication were reviewed. Monitor labs and vitals. DVT and GI prophylaxis. DVT prophylaxis: Dual antiplatelet therapy. On heparin drip for DVT. GI Prophylaxis: Protonix Prognosis is guarded
[2025-03-18 18:30] VITALS: BP 121/73; PULSE 85; TEMP 98.4
== END 2025-03-18 17:41 | DRG 480 ==
LOC: EC 16:18 → 4SSUR 19:36 → 3SCARD 22:05
PROVIDERS: ADMIT Orthopaedic Surgery; ATTEND Orthopaedic Surgery
PROC: 0QSB04Z Reposition Right Lower Femur with Internal Fixation Device, Open Approach (ICD-10-PCS; principal; 2025-03-15 14:40)
PROC: 30233N1 Transfusion of Nonautologous Red Blood Cells into Peripheral Vein, Percutaneous Approach (ICD-10-PCS; 2025-03-17)
DX: S72.491A Other fracture of lower end of right femur, initial encounter for closed fracture (principal); I21.4 Non-ST elevation (NSTEMI) myocardial infarction; M84.651A Pathological fracture in other disease, right femur, initial encounter for fracture; L89.154 Pressure ulcer of sacral region, stage 4; D62 Acute posthemorrhagic anemia; N17.0 Acute kidney failure with tubular necrosis; E87.20 Acidosis, unspecified; I27.20 Pulmonary hypertension, unspecified; L89.329 Pressure ulcer of left buttock, unspecified stage; S82.831A Other fracture of upper and lower end of right fibula, initial encounter for closed fracture; T14.8XXA Other injury of unspecified body region, initial encounter; I08.0 Rheumatic disorders of both mitral and aortic valves; I42.2 Other hypertrophic cardiomyopathy; I50.30 Unspecified diastolic (congestive) heart failure; I50.32 Chronic diastolic (congestive) heart failure; S82.391A Other fracture of lower end of right tibia, initial encounter for closed fracture; I11.0 Hypertensive heart disease with heart failure; G35 Multiple sclerosis; J44.9 Chronic obstructive pulmonary disease, unspecified; E03.9 Hypothyroidism, unspecified; K76.0 Fatty (change of) liver, not elsewhere classified; M86.9 Osteomyelitis, unspecified; I48.91 Unspecified atrial fibrillation; E61.1 Iron deficiency; R00.0 Tachycardia, unspecified; Z88.1 Allergy status to other antibiotic agents; Z88.8 Allergy status to other drugs, medicaments and biological substances; E78.5 Hyperlipidemia, unspecified; I49.3 Ventricular premature depolarization; M85.80 Other specified disorders of bone density and structure, unspecified site; I25.10 Atherosclerotic heart disease of native coronary artery without angina pectoris; F90.9 Attention-deficit hyperactivity disorder, unspecified type; N28.1 Cyst of kidney, acquired; W05.0XXA Fall from non-moving wheelchair, initial encounter; Y92.009 Unspecified place in unspecified non-institutional (private) residence as the place of occurrence of the external cause; Z79.82 Long term (current) use of aspirin; Z79.890 Hormone replacement therapy; Z79.899 Other long term (current) drug therapy; Z86.14 Personal history of Methicillin resistant Staphylococcus aureus infection; Z90.710 Acquired absence of both cervix and uterus; Z96.641 Presence of right artificial hip joint; Z98.61 Coronary angioplasty status; Z99.3 Dependence on wheelchair; Z90.49 Acquired absence of other specified parts of digestive tract
CPT/HCPCS: 36430; 70450; 71045; 80048; 82607; 82747; 83540; 83550; 83735; 84439; 84443; 84484; 85025; 86850; 86900; 86901; 86920; 93005; 93306; 96374; 96376; 99285